=== PATIENT | female | born 1955 | race Caucasian/White ===

== ENCOUNTER 2018-09-08 09:49 | Outpatient (RCR) | payer OTHER, SELFPAY ==
[2018-09-08 10:37] VITALS: BP 139/97; PULSE 69; RESP 18; TEMP 36.4; BMI 41.8
--- NOTE | 2018-09-08 13:01 | PCM.WC.HP ---
(1) Ulcer of right lower extremity with fat layer exposed Status: Chronic Current Visit: Yes Code(s): L97.912 - Non-pressure chronic ulcer of unspecified part of right lower leg with fat layer exposed (2) Edema of both lower extremities Status: Chronic Current Visit: Yes Code(s): R60.0 - Localized edema (3) Venous insufficiency Status: Chronic Current Visit: Yes Code(s): I87.2 - Venous insufficiency (chronic) (peripheral) (4) Delayed wound healing Status: Chronic Current Visit: Yes Code(s): T14.8XXD - Other injury of unspecified body region, subsequent encounter (5) Malnutrition Status: Chronic Current Visit: Yes Code(s): E46 - Unspecified protein-calorie malnutrition History of Present Illness Date of Service: 09/08/18 Chief Complaint: Right leg ulcer History of Wound: This 63-year-old pleasant female presents to the wound healing center for chronic right leg ulcer. The onset was 6 months ago she has had delayed healing. Her pain is rated as mild to moderate and is aggravated with direct touch and swelling. She relates she does get allergic to various fabrics including compression stockings and has been unable to wear these. She usually applies a dry Band-Aid or gauze. She also sometimes leave this open to air at night. She is try to keep pressure off that by not laying on the side. She denies redness odor streaking. She denies initial trauma. She denies history of previous ulcer, claudication, or rest paresthesias. 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 Past Medical History Past Medical History: Chronic Problems Ulcer of right lower extremity with fat layer exposed (Chronic) Edema of both lower extremities (Chronic) Venous insufficiency (Chronic) Delayed wound healing (Chronic) Malnutrition (Chronic) Past Medical History: Hypertension, depression, this metabolic syndrome X, history of malignant neoplasm of GI tract, osteoarthritis, hydronephrosis, history of kidney stones, hyperlipidemia, morbid obesity, history of pulmonary embolism in 2002, hypercholesteremia, recurrent cystitis, urinary incontinence, and urinary urgency, egg allergy noted in medical review Surgical History: - - right ankle ORIF Allergies/Adverse Reactions: Allergies atorvastatin [From Lipitor] Adverse Reaction (Verified 09/08/18 11:03) Unknown Home Medications: Ambulatory Orders Medication Instructions Recorded Apixaban [Eliquis] 5 mg PO BID 09/08/18 Fenofibrate,Micronized 54 mg PO 09/08/18 [Fenofibrate] Loratadine [Claritin] 5 mg PO 09/08/18 Metoprolol Succinate 25 mg PO 09/08/18 Rosuvastatin Calcium 10 mg PO 09/08/18 Smoking Status: Never smoker Tobacco Use: Non-smoker Alcohol: None Review of Systems Constitutional: Denies: Chills, Fever, Fatigue HEENT: Denies: Sinus Drainage, Sore Throat Cardiovascular: Reports: Edema. Denies: Chest Pain, Claudication, Orthopnea Respiratory: Denies: Cough, Shortness of Breath Gastrointestinal: Denies: Diarrhea, Vomiting Musculoskeletal: Reports: Foot Pain, Joint Tenderness - Hands and feet and right shoulder. Denies: Leg Pain Skin: Reports: Skin Changes, Wounds Neurological: Denies: Incoordination, Numbness, Tingling Hematologic/ Lymphatic: Reports: Easy Bruising, Easy Bleeding, Hx of blood clot - Physical Exam Vital Signs Temp Pulse Resp BP 97.5 F L 69 18 139/97 H 09/08/18 10:37 09/08/18 10:37 09/08/18 10:37 09/08/18 10:37 General: Alert, Oriented x3, Cooperative, No apparent distress HEENT: Atraumatic Extremities: No cyanosis, Capillary Refill Less than 3 Seconds, No Calf Tenderness - Negative Zhou and Avilez sign bilateral. Compartments are soft to palpate bilateral lower extremities, Edema - Moderate bilateral lower extremities with hyperpigmentation, Peripheral Pulses Normal - Palpable PT and DP pulses bilateral Skin: Ulcer/ Wound - No purulence, erythema, streaking, odor, or infection. The ulcer bed is granular fibrous. The peripheral skin is hairless and atrophic. There is hyperpigmentation noted to bilateral lower extremities Wound Measurements and Assessment WC - Nurse 1 - General Ulcer Measurement Start: 09/08/18 10:36 Freq: Status: Active Protocol: Activity Type Activity Date Activity User E-Sign Co-Sign Detail Recorded Client Recorded Date Recorded By Document 09/08/18 10:37 DL [id number] 09/08/18 10:58 DL 09/08/18 10:37 Wound Center Nurse 1 [Ulcer Assessment] #1 Lat LE -Current Size (cm) - Length 0.7 -Current Size (cm) - Width 0.7 -Current Size (cm) - Depth 0.1 -Total Square Cm 0.49 -Photo Taken Yes -Classification - Thickness Unclassifiable (Eschar Covered ) -Exudate Amt None Present -Wound Margin Thickened -Granulation Amt None Present (0 %) -Necrosis Amt Large (67-100%) -Necrotic Tissue Type Eschar -Structure Exposed N/A -Texture (Saniya-wound Skin Appearance) Localized Edema -Moisture (Saniya-wound Skin Appearance No Abnormality ) -Color (Saniya-wound Skin Appearance) Erythema,Rubor -Temperature (Saniya-wound Skin No Abnormality Appearance) (Pt Warm) -Tenderness on Palpation (Saniya-wound No Skin Appearance) -Ulcer Cleansing Rinsed/ Irrigated with Saline -Foul Odor after Cleansing No -Anesthetic Used 5% Lidocaine Gel [Edema Assessment] -Right Calf (cm) 47 -Right Ankle (cm) 27.5 -Left Calf (cm) 46 -Left Ankle (cm) 25 WC - Nurse 2 - General Ulcer CM Notes Start: 09/08/18 10:36 Freq: Status: Active Protocol: Activity Type Activity Date Activity User E-Sign Co-Sign Detail Recorded Client Recorded Date Recorded By Document 09/08/18 11:25 [id number] 09/08/18 11:31 09/08/18 11:25 Wound Center Nurse 2 [Procedure/Treatment] #1 Lat LE -Time 11:25 -Correct Patient Yes -Correct Side, Site, Position Yes -Correct Procedure Yes -Procedure Performed Yes -Type of Procedure Debridement -Clinical Debridement Subcutaneous -Post Debridement Size (cm) - Length 0.7 -Post Debridement Size (cm) - Width 0.6 -Post Debridement Size (cm) - Depth 0.2 -Total Square Cm 0.42 -Wound/Ulcer Outcome Not Healed -Ulcer Cleansing Rinsed/ Irrigated with Saline -Foul Odor after Cleansing No -Bioengineered Tissue No -Bleeding Controlled with Pressure -Offloading No -Treatment Response Procedure Tolerated Well [See Physician Procedure note for Specifics] Pain Scale: 0-10 Numeric [Pain] -Is Patient Pain Free? Yes Musculoskeletal: No Tenderness to Palpation of Joints or Extremities, Muscle Wasting, - - 5 out of 5 ankle and digit muscle strength in all directions bilateral. No pain with passive manipulation of toes, feet, or ankles bilateral Neurological: Sensory exam intact to light touch and pain - Equal and symmetrical bilateral lower extremities Psych/Mental Status: Normal Affect, Appropriate Debridement Note Post-Debridement Measurements/Treatment WC - Nurse 2 - General Ulcer CM Notes Start: 09/08/18 10:36 Freq: Status: Active Protocol: Activity Type Activity Date Activity User E-Sign Co-Sign Detail Recorded Client Recorded Date Recorded By Document 09/08/18 11:25 [id number] 09/08/18 11:31 09/08/18 11:25 Wound Center Nurse 2 #1 Lat LE -Time 11:25 -Correct Patient Yes -Correct Side, Site, Position Yes -Correct Procedure Yes -Procedure Performed Yes -Type of Procedure Debridement -Clinical Debridement Subcutaneous -Post Debridement Size (cm) - Length 0.7 -Post Debridement Size (cm) - Width 0.6 -Post Debridement Size (cm) - Depth 0.2 -Total Square Cm 0.42 -Wound/Ulcer Outcome Not Healed -Ulcer Cleansing Rinsed/ Irrigated with Saline -Foul Odor after Cleansing No -Bioengineered Tissue No -Bleeding Controlled with Pressure -Offloading No -Treatment Response Procedure Tolerated Well Pain Scale: 0-10 Numeric Is Patient Pain Free? Yes Wound debrided: lateral leg Laterality: Right Type of Debridement: Excisional debridement Anesthesia Used: 5% Lidocaine Gel Depth: in the subcutaneous layer Percentage of wound debrided: 100 Instrument Used: #15 blade Tissue Removed: fibrous, devitalized subcutaneous, biofilm, slough Severity: Fat Layer Exposed Amount of bleeding with debridement: Mild Bleeding Controlled with: Pressure Patient tolerated procedure well Assessment/Plan Active Problems Ulcer of right lower extremity with fat layer exposed (Chronic) Edema of both lower extremities (Chronic) Venous insufficiency (Chronic) Delayed wound healing (Chronic) Malnutrition (Chronic) Assessment: Right leg ulcer. Chronic swelling possibly secondary to venous insufficiency. Delayed healing. Malnutrition suspected Plan: I reviewed and discussed her case today. Her ulcer site was debrided with a 15 blade scalpel and this was tolerated well as noted in the clinical panel. Pressure was applied to maintain hemostasis. Change dressing daily with hydrogel. To avoid leaving open to air at night. I do recommend improved edema control to reduce pressure on the site. She is also advised to avoid laying on the ulcer side. Tubigrip's were fitted and dispensed today. I also referred her for a venous Doppler with reflux to evaluate for venous insufficiency. She will return to clinic afterward for evaluation to see if any intervention is available. To avoid idle standing or sitting. To elevate limbs at rest to help with edema reduction. She was advised to take nutritional supplementation to optimize healing; a prescription for Trevor was provided. Labs for CBC, CMP, and prealbumin were also ordered to assess general health status. The comprehensive wound healing plan was discussed including her home management. To return to the wound healing center in 1 week or call sooner if she has any questions or concerns. I answer all her questions.
[2018-09-08 15:12] LABS: Absolute Lymphocyte Count 1.17 X10^3/ul (0.83-4.51); Absolute Neutrophil Count 2.9 X10^3/uL (2.0-7.7); Basophil# 0.01 X10^3/uL; Basophil% 0.2 % (0-1); Eosinophil# 0.21 X10^3/uL; Eosinophils% 4.5 % (0-5); Hematocrit 44.9 % (37-47); Lymphocyte # 1.17 X10^3/ul (4.0); Lymphocyte % 25.2 % (19-41); Mean Corp Hgb Conc 33.4 g/gl (32-36); Mean Corpuscular Hgb 29.2 pg (27.0-32.0); Mean Corpuscular Volume 87.4 fL (81-99); Monocyte# 0.38 X10^3/uL; Monocyte% 8.2 % (0-10); Neutrophil # 2.86 X10^3/uL (2.7-7.7); Neutrophil % 61.7 % (47-70); Platelet Count 268 K/mm3 (150-450); RBC Distribution Width CV 12.8 % (11.6-14.6); RBC Distribution Width SD 39.9 fl (35.1-43.9); Red Blood Count 5.14 M/mm3 (4.2-5.4); White Blood Count 4.6 K/mm3 (4.4-11.0)
[2018-09-08 15:17] LABS: POSITIVE COUNT NO; POSITIVE DIFFERENTIAL NO; POSITIVE MORPHOLOGY NO
[2018-09-08 15:39] LABS: AST(SGOT) 26 U/L (15-37); Alanine Aminotransfer ALT/SGPT 22 U/L (13-56); Albumin, Serum 3.9 g/dL (3.2-5.0); Alkaline Phosphatase 109 U/L (45-117); Anion Gap 9 (5-15); BUN 15 mg/dL (7-18); BUN/Creat Ratio 17.6 RATIO (10-20); Calcium,Total 9.3 mg/dL (8.5-10.1); Chloride 106 mmol/L (98-107); Creatinine, Serum 0.85 mg/dL (0.55-1.02); EST Glomerular Filtration Rate 72 mL/min (>60); Est Glom Filt Rate - Afr Amer 87 mL/min (>60); Estimated Creatinine Clearance 62.54 ml/min; Globulin 3.9 g/dL (2.2-4.2); Glucose 79 mg/dL (74-106); Potassium 3.9 mmol/L (3.5-5.1); Prealbumin 22.3 mg/dL (20.0-40.0); Protein, Total 7.8 g/dL (6.4-8.2); Sodium Level 143 mmol/L (136-145)
== END 2018-09-12 23:59 ==
LOC: WC 09:49
PROVIDERS: Family Provider Internal Medicine; PCP Internal Medicine; Visit Provider Podiatrist
DX: I87.2 Venous insufficiency (chronic) (peripheral) (principal); R60.0 Localized edema; L97.812 Non-pressure chronic ulcer of other part of right lower leg with fat layer exposed; M79.89 Other specified soft tissue disorders; Z86.711 Personal history of pulmonary embolism; M19.90 Unspecified osteoarthritis, unspecified site; E66.01 Morbid (severe) obesity due to excess calories; I10 Essential (primary) hypertension; E78.5 Hyperlipidemia, unspecified; Z68.41 Body mass index [BMI] 40.0-44.9, adult; Z71.3 Dietary counseling and surveillance; E88.81 Metabolic syndrome and other insulin resistance; Z79.01 Long term (current) use of anticoagulants; Z79.899 Other long term (current) drug therapy
CPT/HCPCS: 11042; 80053; 84134; 85025; 99213; G0463

== ENCOUNTER 2018-10-13 08:30 | Outpatient (RCR) | payer OTHER, SELFPAY ==
[2018-09-15 10:39] VITALS: BP 143/75; PULSE 72; RESP 18; TEMP 36.9; BMI 41.8
--- NOTE | 2018-09-15 11:14 | PCM.WC.PN ---
(1) Ulcer of right lower extremity with fat layer exposed Status: Chronic Current Visit: Yes Code(s): L97.912 - Non-pressure chronic ulcer of unspecified part of right lower leg with fat layer exposed (2) Edema of both lower extremities Status: Chronic Current Visit: Yes Code(s): R60.0 - Localized edema (3) Venous insufficiency Status: Chronic Current Visit: Yes Code(s): I87.2 - Venous insufficiency (chronic) (peripheral) (4) Delayed wound healing Status: Chronic Current Visit: Yes Code(s): T14.8XXD - Other injury of unspecified body region, subsequent encounter (5) Malnutrition Status: Chronic Current Visit: Yes Code(s): E46 - Unspecified protein-calorie malnutrition Type of Wound Date of Service: 09/15/18 Chief Complaint: Right leg ulcer History of Wound: This 63-year-old pleasant female returns to the wound healing center for chronic right leg ulcer. The onset was 6 months ago she has had delayed healing. Her pain is rated as mild to moderate and is aggravated with direct touch and swelling. She admits she does accidentally lay on the site during sleeping activities. She denies fever, chill, nausea, vomiting, redness or odors. Progress of Wound: improving - Physical Exam Vital Signs Temp Pulse Resp BP 98.4 F 72 18 143/75 H 09/15/18 10:39 09/15/18 10:39 09/15/18 10:39 09/15/18 10:39 General: Alert, Oriented x3, Cooperative, No apparent distress Extremities: No cyanosis, Capillary Refill Less than 3 Seconds, No Calf Tenderness - Negative Zhou and Avilez sign, Diminished Peripheral Pulses, Edema Skin: Ulcer/ Wound - no purulence, erythema, streaking, odor, infection. Peripheral skin is hairless and atrophic. Ulcer bed is granular and improved Wound Measurements and Assessment WC - Nurse 1 - General Ulcer Measurement Start: 09/15/18 10:39 Freq: Status: Inactive Protocol: Activity Type Activity Date Activity User E-Sign Co-Sign Detail Recorded Client Recorded Date Recorded By Document 09/15/18 10:39 RB [id number] 09/15/18 10:41 RB Edit Status 09/15/18 10:50 STEPHANY DAEMON Active=>Inactive [id number] 09/15/18 10:50 STEPHANY LINDSEY 09/15/18 10:39 Wound Center Nurse 1 [Ulcer Assessment] #1 Right Lat LE -Combined with other wound No -Current Size (cm) - Length 0.7 -Current Size (cm) - Width 0.5 -Current Size (cm) - Depth 0.2 -Total Square Cm 0.35 -Tunneling No -Undermining/Tunneling No -Circular Undermining No -Exudate Amt Small -Exudate Type Serosanguineous -Wound Margin Distinct, Outline Attached -Granulation Amt Medium (34-66%) -Granulation Quality Tamora -Slough/Fibrin Yes -Necrosis Amt Medium (34-66%) -Necrotic Tissue Type Adherent Slough -Structure Exposed N/A -Texture (Saniya-wound Skin Appearance) Assessed -Moisture (Saniya-wound Skin Appearance Assessed ) -Color (Saniya-wound Skin Appearance) Hemosiderin Staining -Temperature (Saniya-wound Skin No Abnormality Appearance) (Pt Warm) -Tenderness on Palpation (Saniya-wound No Skin Appearance) -Ulcer Cleansing Wound Cleanser -Foul Odor after Cleansing No -Anesthetic Used 5% Lidocaine Gel [Edema Assessment] -Lower Limb Edema Present Yes -Right Calf (cm) 48 -Right Ankle (cm) 26.4 WC - Nurse 2 - General Ulcer CM Notes Start: 09/15/18 10:39 Freq: Status: Inactive Protocol: Activity Type Activity Date Activity User E-Sign Co-Sign Detail Recorded Client Recorded Date Recorded By Edit Status 09/15/18 10:50 STEPHANY LINDSEY Active=>Inactive [id number] 09/15/18 10:50 STEPHANY LINDSEY - Nurse 2 - General Ulcer CM Notes Start: 09/15/18 10:49 Freq: Status: Active Protocol: Activity Type Activity Date Activity User E-Sign Co-Sign Detail Recorded Client Recorded Date Recorded By Document 09/15/18 10:49 MATT [id number] 09/15/18 10:50 MATT 09/15/18 10:49 Wound Center Nurse 2 [Procedure/Treatment] #1 Right Lat LE -Time 10:49 -Correct Patient Yes -Correct Side, Site, Position Yes -Correct Procedure Yes -Procedure Performed Yes -Type of Procedure Debridement -Clinical Debridement Subcutaneous -Post Debridement Size (cm) - Length 0.7 -Post Debridement Size (cm) - Width 0.7 -Post Debridement Size (cm) - Depth 0.1 -Total Square Cm 0.49 -Wound/Ulcer Outcome Not Healed -Ulcer Cleansing Rinsed/ Irrigated with Saline -Foul Odor after Cleansing No -Bioengineered Tissue No -Bleeding Controlled with Pressure -Offloading No -Treatment Response Procedure Tolerated Well [See Physician Procedure note for Specifics] Pain Scale: 0-10 Numeric [Pain] -Is Patient Pain Free? Yes Musculoskeletal: No Tenderness to Palpation of Joints or Extremities, Muscle Wasting Neurological: Sensory exam intact to light touch and pain Psych/Mental Status: Normal Affect, Appropriate Debridement Note Post-Debridement Measurements/Treatment WC - Nurse 2 - General Ulcer CM Notes Start: 09/15/18 10:49 Freq: Status: Active Protocol: Activity Type Activity Date Activity User E-Sign Co-Sign Detail Recorded Client Recorded Date Recorded By Document 09/15/18 10:49 MATT [id number] 09/15/18 10:50 MATT 09/15/18 10:49 Wound Center Nurse 2 #1 Right Lat LE -Time 10:49 -Correct Patient Yes -Correct Side, Site, Position Yes -Correct Procedure Yes -Procedure Performed Yes -Type of Procedure Debridement -Clinical Debridement Subcutaneous -Post Debridement Size (cm) - Length 0.7 -Post Debridement Size (cm) - Width 0.7 -Post Debridement Size (cm) - Depth 0.1 -Total Square Cm 0.49 -Wound/Ulcer Outcome Not Healed -Ulcer Cleansing Rinsed/ Irrigated with Saline -Foul Odor after Cleansing No -Bioengineered Tissue No -Bleeding Controlled with Pressure -Offloading No -Treatment Response Procedure Tolerated Well Pain Scale: 0-10 Numeric Is Patient Pain Free? Yes Wound debrided: lateral leg Laterality: Right Type of Debridement: Excisional debridement Anesthesia Used: 5% Lidocaine Gel Depth: in the subcutaneous layer Percentage of wound debrided: 100 Instrument Used: #15 blade Tissue Removed: fibrous, devitalized subcutaneous, biofilm, slough Severity: Fat Layer Exposed Amount of bleeding with debridement: Mild Bleeding Controlled with: Pressure Patient tolerated procedure well Assessment/Plan Active Problems Ulcer of right lower extremity with fat layer exposed (Chronic) Edema of both lower extremities (Chronic) Venous insufficiency (Chronic) Delayed wound healing (Chronic) Malnutrition (Chronic) Assessment: Right leg ulcer with fat layer exposed. Chronic swelling possibly secondary to venous insufficiency. Delayed healing. Malnutrition suspected Plan: I reviewed and discussed her case today. Her ulcer site was debrided with a 15 blade scalpel and this was tolerated well as noted in the clinical panel. Pressure was applied to maintain hemostasis. Change dressing daily with hydrogel. I do recommend improved edema control to reduce pressure on the site. She is also advised to avoid laying on the ulcer side. A prescription for offloading donut pillow was provided and she is advised on proper use. Tubigrip's were fitted and dispensed today. I also referred her for a venous Doppler with reflux to evaluate for venous insufficiency. She will return to clinic afterward for evaluation to see if any intervention is available. This is scheduled for next week. To avoid idle standing or sitting. To elevate limbs at rest to help with edema reduction. She was advised to take nutritional supplementation to optimize healing; a prescription for Trevor was provided. Labs for CBC, CMP, and prealbumin were also ordered to assess general health status. These were reviewed with no gross abnormalities. It is noted her prealbumin level was 22 which is on the low end of the normal range. The comprehensive wound healing plan was discussed including her home management. To return to the wound healing center in 1 week or call sooner if she has any questions or concerns. I answer all her questions.
--- NOTE | 2018-09-22 13:16 | VDLE_ITS ---
Reason For Study: Leg edema RIGHT LEFT CFV is compressible, spontaneous, phasic, CFV is compressible, spontaneous, phasic, competent and demonstrates normal competent, and demonstrates normal augmentation. augmentation. FV is compressible, spontaneous, phasic, FV is compressible, spontaneous, phasic, competent and demonstrates normal competent and demonstrates normal augmentation. augmentation. POP V is compressible, spontaneous, phasic, POP V is compressible, spontaneous, phasic, competent and demonstrates normal competent and demonstrates normal augmentation. augmentation. T/P Trunk is compressible. T/P Trunk is compressible. PTV is compressible. PTV is compressible. RT PerV is compressible. LT PerV is compressible. SFJ is competent. SFJ is competent. GSV above knee is competent. GSV above knee is competent. GSV below knee is INCOMPETENT for greater GSV ebelow knee is INCOMPETENT for greater than 0.5 sec and measures 0.38 x 0.38 cm. than 0.5 seconds and measures 0.27 x 0.25 cm. SSV is competent. SSV is competent. Procedure Exam performed in department. A preliminary report was called and/or faxed to . Interpretation Summary Deep veins of the lower extremities are bilaterally patent and compressible segmentally. There is no evidence of deep vein thrombosis on either side. Valvular competence appears intact within the proximal deep venous systems bilaterally. The greater saphenous veins appear bilaterally patent and compressible segmentally. Sapheno-femoral junctions are bilaterally competent . The right greater saphenous vein appears competent above the knee. The right greater saphenous vein appears incompetent below the knee. The left greater saphenous vein appears competent above the knee. The left greater saphenous vein appears incompetent below the knee. Small saphenous veins are patent and competent bilaterally. Ordering Physician: Elyssa Queen Referring Physician: Bharati Billings Performed By: Willinger, Flower, RVT
[2018-09-22 14:09] VITALS: BP 121/79; PULSE 92; RESP 18; TEMP 36.9; BMI 41.8
--- NOTE | 2018-09-22 15:20 | PN.PCM_ITS ---
(1) Ulcer of right lower extremity with fat layer exposed Status: Chronic Current Visit: Yes Code(s): L97.912 - Non-pressure chronic ulcer of unspecified part of right lower leg with fat layer exposed (2) Edema of both lower extremities Status: Chronic Current Visit: Yes Code(s): R60.0 - Localized edema (3) Venous insufficiency Status: Chronic Current Visit: Yes Code(s): I87.2 - Venous insufficiency (chronic) (peripheral) (4) Delayed wound healing Status: Chronic Current Visit: Yes Code(s): T14.8XXD - Other injury of unspecified body region, subsequent encounter (5) Malnutrition Status: Chronic Current Visit: Yes Code(s): E46 - Unspecified protein- calorie malnutrition Type of Wound Date of Service: 09/22/18 Chief Complaint: Right leg ulcer History of Wound: This 63-year-old pleasant female returns to the wound healing center for chronic right leg ulcer. The onset was 6 months ago she has had delayed healing. Her pain is rated as mild to moderate and is aggravated with direct touch and swelling. She reports the ulcer is getting smaller and draining less. She denies fever, chill, nausea, vomiting, redness or odors. Progress of Wound: improving - Physical Exam Vital Signs Temp Pulse Resp BP 98.4 F 92 18 121/79 H 09/22/18 14:09 09/22/18 14:09 09/22/18 14:09 09/22/18 14:09 General: Alert, Oriented x3, Cooperative, No apparent distress Extremities: No cyanosis, Capillary Refill Less than 3 Seconds, No Calf Tenderness - Negative Zhou and Avilez sign right, Diminished Peripheral Pulses, Edema Skin: Ulcer/ Wound - No purulence, erythema, streaking, odor, infection. Peripheral skin is hairless and atrophic. Wound Measurements and Assessment WC - Nurse 1 - General Ulcer Measurement Start: 09/15/18 10:49 Freq: Status: Active Protocol: Activity Type Activity Date Activity User E-Sign Co-Sign Detail Recorded Client Recorded Date Recorded By Document 09/22/18 14:09 DL [id number] 09/22/18 14:16 DL 09/22/18 14:09 Wound Center Nurse 1 [Ulcer Assessment] #1 Right Lat LE -Current Size (cm) - Length 0.7 -Current Size (cm) - Width 0.7 -Current Size (cm) - Depth 0.2 -Total Square Cm 0.49 -Photo Taken No -Exudate Amt Small -Exudate Type Serosanguineous -Wound Margin Distinct, Outline Attached -Granulation Amt Large (67-100%) -Granulation Quality Red -Necrosis Amt Small (1-33%) -Necrotic Tissue Type Adherent Slough -Structure Exposed N/A -Texture (Saniya-wound Skin Appearance) Scarring -Moisture (Saniya-wound Skin Appearance No Abnormality ) -Color (Saniya-wound Skin Appearance) Erythema -Temperature (Saniya-wound Skin No Abnormality Appearance) (Pt Warm) -Tenderness on Palpation (Saniya-wound No Skin Appearance) -Ulcer Cleansing Rinsed/ Irrigated with Saline -Foul Odor after Cleansing No -Anesthetic Used 5% Lidocaine Gel [Edema Assessment] -Right Calf (cm) 46.5 -Right Ankle (cm) 25.3 WC - Nurse 2 - General Ulcer CM Notes Start: 09/15/18 10:49 Freq: Status: Active Protocol: Activity Type Activity Date Activity User E-Sign Co-Sign Detail Recorded Client Recorded Date Recorded By Document 09/22/18 14:36 [id number] 09/22/18 14:39 09/22/18 14:36 Wound Center Nurse 2 [Procedure/Treatment] #1 Right Lat LE -Time 14:38 -Correct Patient Yes -Correct Side, Site, Position Yes -Correct Procedure Yes -Procedure Performed Yes -Type of Procedure Debridement -Clinical Debridement Subcutaneous -Post Debridement Size (cm) - Length 0.8 -Post Debridement Size (cm) - Width 0.7 -Post Debridement Size (cm) - Depth 0.2 -Total Square Cm 0.56 -Wound/Ulcer Outcome Not Healed -Ulcer Cleansing Rinsed/ Irrigated with Saline -Foul Odor after Cleansing No -Bioengineered Tissue No -Bleeding Controlled with Pressure -Offloading No -Treatment Response Procedure Tolerated Well [See Physician Procedure note for Specifics] Pain Scale: 0-10 Numeric [Pain] -Is Patient Pain Free? Yes Musculoskeletal: No Tenderness to Palpation of Joints or Extremities, Muscle Wasting, - - Compartment soft to palpate right Neurological: Sensory exam intact to light touch and pain Psych/Mental Status: Normal Affect, Appropriate Debridement Note Post-Debridement Measurements/Treatment WC - Nurse 2 - General Ulcer CM Notes Start: 09/15/18 10:49 Freq: Status: Active Protocol: Activity Type Activity Date Activity User E-Sign Co-Sign Detail Recorded Client Recorded Date Recorded By Document 09/15/18 10:49 [id number] 09/15/18 10:50 Document 09/22/18 14:36 [id number] 09/22/18 14:39 09/15/18 09/22/18 10:49 14:36 Wound Center Nurse 2 #1 Right Lat LE -Time 10:49 14:38 -Correct Patient Yes Yes -Correct Side, Site, Position Yes Yes -Correct Procedure Yes Yes -Procedure Performed Yes Yes -Type of Procedure Debridement Debridement -Clinical Debridement Subcutaneous Subcutaneous -Post Debridement Size (cm) - Length 0.7 0.8 -Post Debridement Size (cm) - Width 0.7 0.7 -Post Debridement Size (cm) - Depth 0.1 0.2 -Total Square Cm 0.49 0.56 -Wound/Ulcer Outcome Not Healed Not Healed -Ulcer Cleansing Rinsed/ Rinsed/ Irrigated with Irrigated with Saline Saline -Foul Odor after Cleansing No No -Bioengineered Tissue No No -Bleeding Controlled with Pressure Pressure -Offloading No No -Treatment Response Procedure Procedure Tolerated Well Tolerated Well Pain Scale: 0-10 Numeric Is Patient Pain Free? Yes Yes Wound debrided: leg lateral Laterality: Right Type of Debridement: Excisional debridement Anesthesia Used: 5% Lidocaine Gel Depth: in the subcutaneous layer Percentage of wound debrided: 100 Instrument Used: #15 blade Tissue Removed: fibrous, devitalized subcutaneous, biofilm, slough Severity: Fat Layer Exposed Amount of bleeding with debridement: Mild Bleeding Controlled with: Pressure Patient tolerated procedure well Assessment/Plan Active Problems Ulcer of right lower extremity with fat layer exposed (Chronic) Edema of both lower extremities (Chronic) Venous insufficiency (Chronic) Delayed wound healing (Chronic) Malnutrition (Chronic) Assessment: Right leg ulcer with fat layer exposed. Chronic swelling possibly secondary to venous insufficiency. Delayed healing. Malnutrition suspected Plan: I reviewed and discussed her case today. Her ulcer site was debrided with a 15 blade scalpel and this was tolerated well as noted in the clinical panel. Pressure was applied to maintain hemostasis. Change dressing daily with hydrogel. I do recommend improved edema control to reduce pressure on the site. She is also advised to avoid laying on the ulcer side. A prescription for offloading donut pillow was provided and she is advised on proper use. To continue Tubigrip's. I also referred her for a venous Doppler with reflux to evaluate for venous insufficiency. Incompetency was noted and I recommended a vascular surgery referral with Dr. Yung to see if any additional intervention exists. She will return to clinic afterward for evaluation to see if any intervention is available. This is scheduled for next week. To avoid idle standing or sitting. To elevate limbs at rest to help with edema reduction. She was advised to take nutritional supplementation to optimize healing; a prescription for Trevor was provided. She obtained this and she was advised to continue. Labs for CBC, CMP, and prealbumin were also ordered to assess general health status. No gross abnormalities were noted. Her white blood cell count was 4.6. Her prealbumin level was 22.3. These other labs were reviewed with no gross abnormalities. The comprehensive wound healing plan was discussed including her home management. To return to the wound healing center in 1 week or call sooner if she has any questions or concerns. I answer all her questions.
[2018-09-29 14:44] VITALS: BP 120/72; PULSE 71; RESP 18; TEMP 36.9; BMI 41.8
--- NOTE | 2018-09-29 15:29 | PN.PCM_ITS ---
(1) Ulcer of right lower extremity with fat layer exposed Status: Chronic Current Visit: Yes Code(s): L97.912 - Non-pressure chronic ulcer of unspecified part of right lower leg with fat layer exposed (2) Edema of both lower extremities Status: Chronic Current Visit: Yes Code(s): R60.0 - Localized edema (3) Venous insufficiency Status: Chronic Current Visit: Yes Code(s): I87.2 - Venous insufficiency (chronic) (peripheral) (4) Delayed wound healing Status: Chronic Current Visit: Yes Code(s): T14.8XXD - Other injury of unspecified body region, subsequent encounter (5) Malnutrition Status: Chronic Current Visit: Yes Code(s): E46 - Unspecified protein- calorie malnutrition Type of Wound Date of Service: 09/30/18 Chief Complaint: Right leg ulcer History of Wound: This 63-year-old pleasant female returns to the wound healing center for chronic right leg ulcer. The onset was over 6 months ago she has had delayed healing. Her pain is rated as mild to moderate and is aggravated with direct touch and swelling. She denies fever, chill, nausea, vomiting, redness or odors. She has a follow-up with Dr. Yung on October 12. She brought her Farrow wraps today and asked for help with the application process. Progress of Wound: Stable - Physical Exam Vital Signs Temp Pulse Resp BP 98.4 F 71 18 120/72 09/29/18 14:44 09/29/18 14:44 09/29/18 14:44 09/29/18 14:44 General: Alert, Oriented x3, Cooperative, No apparent distress Extremities: No cyanosis, Capillary Refill Less than 3 Seconds, No Calf Tenderness - Negative Zhou and Avilez sign bilateral. Compartments are soft to palpate bilateral lower extremities., Diminished Peripheral Pulses, Edema - Bilateral lower extremity consistent with venous insufficiency and lymphedema Skin: Ulcer/ Wound - No purulence, erythema, streaking, odor, infection. The peripheral skin is hairless and atrophic. There is no deep tissue noted or necrosis. Wound Measurements and Assessment WC - Nurse 1 - General Ulcer Measurement Start: 09/15/18 10:49 Freq: Status: Active Protocol: Activity Type Activity Date Activity User E-Sign Co-Sign Detail Recorded Client Recorded Date Recorded By Document 09/29/18 14:44 [id number] 09/29/18 14:53 09/29/18 14:44 Wound Center Nurse 1 [Ulcer Assessment] #1 Right Lat LE -Combined with other wound No -Current Size (cm) - Length 0.7 -Current Size (cm) - Width 0.6 -Current Size (cm) - Depth 0.2 -Total Square Cm 0.42 -Tunneling No -Undermining/Tunneling No -Circular Undermining No -Exudate Amt Small -Exudate Type Serosanguineous -Wound Margin Distinct, Outline Attached -Granulation Amt Medium (34-66%) -Granulation Quality [place] -Slough/Fibrin Yes -Necrosis Amt Small (1-33%) -Necrotic Tissue Type Adherent Slough -Structure Exposed N/A -Texture (Saniya-wound Skin Appearance) Assessed -Moisture (Saniya-wound Skin Appearance Assessed ) -Color (Saniya-wound Skin Appearance) Assessed, Erythema -Temperature (Saniya-wound Skin No Abnormality Appearance) (Pt Warm) -Tenderness on Palpation (Saniya-wound No Skin Appearance) -Ulcer Cleansing Wound Cleanser -Foul Odor after Cleansing No -Anesthetic Used 5% Lidocaine Gel [Edema Assessment] -Lower Limb Edema Present Yes -Right Calf (cm) 48 -Right Ankle (cm) 26.4 WC - Nurse 2 - General Ulcer CM Notes Start: 09/15/18 10:49 Freq: Status: Active Protocol: Activity Type Activity Date Activity User E-Sign Co-Sign Detail Recorded Client Recorded Date Recorded By Document 09/29/18 15:24 [id number] 09/29/18 15:29 AN 09/29/18 15:24 Wound Center Nurse 2 [Procedure/Treatment] #1 Right Lat LE -Time 15:28 -Correct Patient Yes -Correct Side, Site, Position Yes -Correct Procedure Yes -Procedure Performed Yes -Type of Procedure Debridement -Clinical Debridement Subcutaneous -Post Debridement Size (cm) - Length 0.8 -Post Debridement Size (cm) - Width 0.7 -Post Debridement Size (cm) - Depth 0.2 -Total Square Cm 0.56 -Wound/Ulcer Outcome Not Healed -Ulcer Cleansing Rinsed/ Irrigated with Saline -Bleeding Controlled with Pressure -Treatment Response Procedure Tolerated Well [See Physician Procedure note for Specifics] Pain Scale: 0-10 Numeric [Pain] -Is Patient Pain Free? Yes Musculoskeletal: No Tenderness to Palpation of Joints or Extremities, Muscle Wasting Neurological: Sensory exam intact to light touch and pain Psych/Mental Status: Normal Affect, Appropriate Debridement Note Post-Debridement Measurements/Treatment WC - Nurse 2 - General Ulcer CM Notes Start: 09/15/18 10:49 Freq: Status: Active Protocol: Activity Type Activity Date Activity User E-Sign Co-Sign Detail Recorded Client Recorded Date Recorded By Document 09/15/18 10:49 [id number] 09/15/18 10:50 Document 09/22/18 14:36 [id number] 09/22/18 14:39 Document 09/29/18 15:24 AN [id number] 09/29/18 15:29 AN 09/15/18 09/22/18 09/29/18 10:49 14:36 15:24 Wound Center Nurse 2 #1 Right Lat LE -Time 10:49 14:38 15:28 -Correct Patient Yes Yes Yes -Correct Side, Site, Position Yes Yes Yes -Correct Procedure Yes Yes Yes -Procedure Performed Yes Yes Yes -Type of Procedure Debridement Debridement Debridement -Clinical Debridement Subcutaneous Subcutaneous Subcutaneous -Post Debridement Size (cm) - Length 0.7 0.8 0.8 -Post Debridement Size (cm) - Width 0.7 0.7 0.7 -Post Debridement Size (cm) - Depth 0.1 0.2 0.2 -Total Square Cm 0.49 0.56 0.56 -Wound/Ulcer Outcome Not Healed Not Healed Not Healed -Ulcer Cleansing Rinsed/ Rinsed/ Rinsed/ Irrigated with Irrigated with Irrigated with Saline Saline Saline -Foul Odor after Cleansing No No -Bioengineered Tissue No No -Bleeding Controlled with Pressure Pressure Pressure -Offloading No No -Treatment Response Procedure Procedure Procedure Tolerated Well Tolerated Well Tolerated Well Pain Scale: 0-10 Numeric Is Patient Pain Free? Yes Yes Yes Wound debrided: lateral leg Laterality: Right Type of Debridement: Excisional debridement Anesthesia Used: 5% Lidocaine Gel Depth: in the subcutaneous layer Percentage of wound debrided: 100 Instrument Used: #15 blade Tissue Removed: fibrous, devitalized subcutaneous, biofilm, slough Severity: Fat Layer Exposed Amount of bleeding with debridement: Mild Bleeding Controlled with: Pressure Patient tolerated procedure well Assessment/Plan Active Problems Ulcer of right lower extremity with fat layer exposed (Chronic) Edema of both lower extremities (Chronic) Venous insufficiency (Chronic) Delayed wound healing (Chronic) Malnutrition (Chronic) Assessment: Right leg ulcer with fat layer exposed. Chronic swelling possibly secondary to venous insufficiency. Delayed healing. Malnutrition suspected Plan: Thank youI reviewed and discussed her case today. Her ulcer site was debrided with a 15 blade scalpel and this was tolerated well as noted in the clinical panel. Pressure was applied to maintain hemostasis. Change dressing da grace with hydrogel. I do recommend improved edema control to reduce pressure on the site. She is also advised to avoid laying on the ulcer side. A prescription for offloading donut pillow was provided and she is advised on proper use. To continue Tubigrip's. I also referred her for a venous Doppler with reflux to evaluate for venous insufficiency. Incompetency was noted and I recommended a vascular surgery referral with Dr. Yung to see if any additional intervention exists. She will return to clinic afterward for evaluation to see if any intervention is available. She is scheduled for October 12. She brought her Farrow wraps today and education on proper application was reviewed. To avoid idle standing or sitting. To elevate limbs at rest to help with edema reduction. She was advised to take nutritional supplementation to optimize healing; a prescription for Trevor was provided. She obtained this and she was advised to continue. Labs for CBC, CMP, and prealbumin were also ordered to assess general health status. No gross abnormalities were noted. Her white blood cell count was 4.6. Her prealbumin level was 22.3. These other labs were reviewed with no gross abnormalities. The comprehensive wound healing plan was discussed including her home management. I recommend application of advanced wound healing product, epi-fix. Prior authorization will be initiated. The purpose, indication, anticipated healing time management were discussed in detail. It is noted she has had this ulcer for over 6 months and has failed standard comprehensive wound healing plan so far. This is medically necessary for limb salvage. To return to the wound healing center in 1 week or call sooner if she has any questions or concerns. I answer all her questions.
[2018-10-06 13:38] VITALS: BP 116/79; PULSE 95; RESP 18; TEMP 37; BMI 41.8
--- NOTE | 2018-10-06 14:16 | PCM.WC.PN ---
(1) Ulcer of right lower extremity with fat layer exposed Status: Chronic Current Visit: Yes Code(s): L97.912 - Non-pressure chronic ulcer of unspecified part of right lower leg with fat layer exposed (2) Edema of both lower extremities Status: Chronic Current Visit: Yes Code(s): R60.0 - Localized edema (3) Venous insufficiency Status: Chronic Current Visit: Yes Code(s): I87.2 - Venous insufficiency (chronic) (peripheral) (4) Delayed wound healing Status: Chronic Current Visit: Yes Code(s): T14.8XXD - Other injury of unspecified body region, subsequent encounter (5) Malnutrition Status: Chronic Current Visit: Yes Code(s): E46 - Unspecified protein-calorie malnutrition Type of Wound Date of Service: 10/08/18 Chief Complaint: Right leg ulcer History of Wound: This 63-year-old pleasant female returns to the wound healing center for chronic right leg ulcer. The onset was over 6 months ago she has had delayed healing. Her pain is rated as mild to moderate and is aggravated with direct touch and swelling. She denies fever, chill, nausea, vomiting, redness or odors. She has a follow-up with Dr. Yung on October 12. Progress of Wound: imProving - Physical Exam Vital Signs Temp Pulse Resp BP 98.6 F 95 18 116/79 10/06/18 13:38 10/06/18 13:38 10/06/18 13:38 10/06/18 13:38 General: Alert, Oriented x3, Cooperative, No apparent distress Extremities: No cyanosis, Capillary Refill Less than 3 Seconds, No Calf Tenderness - Negative Zhou and Avilez signs present. Legs appear consistent with lymphedema appearance, Edema, Peripheral Pulses Normal Skin: Ulcer/ Wound - No purulence, erythema, string, odor, infection. Peripheral skin is hyperpigmented and atrophic Wound Measurements and Assessment WC - Nurse 1 - General Ulcer Measurement Start: 09/15/18 10:49 Freq: Status: Active Protocol: Activity Type Activity Date Activity User E-Sign Co-Sign Detail Recorded Client Recorded Date Recorded By Document 10/06/18 13:38 RB [id number] 10/06/18 13:40 RB 10/06/18 13:38 Wound Center Nurse 1 [Ulcer Assessment] #1 Right Lat LE -Combined with other wound No -Current Size (cm) - Length 0.9 -Current Size (cm) - Width 0.9 -Current Size (cm) - Depth 0.2 -Total Square Cm 0.81 -Photo Taken No -Tunneling No -Undermining/Tunneling No -Circular Undermining No -Exudate Amt Small -Exudate Type Serosanguineous -Wound Margin Flat & Intact -Granulation Amt Medium (34-66%) -Granulation Quality [place] -Slough/Fibrin Yes -Necrosis Amt Medium (34-66%) -Necrotic Tissue Type Adherent Slough -Structure Exposed N/A -Texture (Saniya-wound Skin Appearance) Assessed, Excoriation -Moisture (Saniya-wound Skin Appearance Assessed,Dry/ ) Scaly -Color (Saniya-wound Skin Appearance) Assessed -Temperature (Saniya-wound Skin No Abnormality Appearance) (Pt Warm) -Tenderness on Palpation (Saniya-wound No Skin Appearance) -Ulcer Cleansing Wound Cleanser -Foul Odor after Cleansing No -Anesthetic Used 5% Lidocaine Gel [Edema Assessment] -Lower Limb Edema Present Yes -Right Calf (cm) 48.5 -Right Ankle (cm) 27 WC - Nurse 2 - General Ulcer CM Notes Start: 09/15/18 10:49 Freq: Status: Active Protocol: Activity Type Activity Date Activity User E-Sign Co-Sign Detail Recorded Client Recorded Date Recorded By Document 10/06/18 14:02 AN [id number] 10/06/18 14:11 AN 10/06/18 14:02 Wound Center Nurse 2 [Procedure/Treatment] #1 Right Lat LE -Time 14:09 -Correct Patient Yes -Correct Side, Site, Position Yes -Correct Procedure Yes -Procedure Performed Yes -Type of Procedure Debridement -Clinical Debridement Subcutaneous -Post Debridement Size (cm) - Length 1.0 -Post Debridement Size (cm) - Width 1.0 -Post Debridement Size (cm) - Depth 0.2 -Total Square Cm 1.00 -Wound/Ulcer Outcome Not Healed -Ulcer Cleansing Rinsed/ Irrigated with Saline -Foul Odor after Cleansing No -Bioengineered Tissue No -Type of bioengineered Tissue EPIFIX -Bleeding Controlled with Pressure -Offloading No -Treatment Response Procedure Tolerated Well [See Physician Procedure note for Specifics] Pain Scale: 0-10 Numeric [Pain] -Is Patient Pain Free? Yes Musculoskeletal: No Tenderness to Palpation of Joints or Extremities, Muscle Wasting Neurological: Sensory exam intact to light touch and pain Psych/Mental Status: Normal Affect, Appropriate Debridement Note Post-Debridement Measurements/Treatment WC - Nurse 2 - General Ulcer CM Notes Start: 09/15/18 10:49 Freq: Status: Active Protocol: Activity Type Activity Date Activity User E-Sign Co-Sign Detail Recorded Client Recorded Date Recorded By Document 09/15/18 10:49 [id number] 09/15/18 10:50 Document 09/22/18 14:36 [id number] 09/22/18 14:39 JF Document 09/29/18 15:24 AN [id number] 09/29/18 15:29 AN Document 10/06/18 14:02 AN [id number] 10/06/18 14:11 AN 09/15/18 09/22/18 09/29/18 10:49 14:36 15:24 Wound Center Nurse 2 #1 Right Lat LE -Time 10:49 14:38 15:28 -Correct Patient Yes Yes Yes -Correct Side, Site, Position Yes Yes Yes -Correct Procedure Yes Yes Yes -Procedure Performed Yes Yes Yes -Type of Procedure Debridement Debridement Debridement -Clinical Debridement Subcutaneous Subcutaneous Subcutaneous -Post Debridement Size (cm) - Length 0.7 0.8 0.8 -Post Debridement Size (cm) - Width 0.7 0.7 0.7 -Post Debridement Size (cm) - Depth 0.1 0.2 0.2 -Total Square Cm 0.49 0.56 0.56 -Wound/Ulcer Outcome Not Healed Not Healed Not Healed -Ulcer Cleansing Rinsed/ Rinsed/ Rinsed/ Irrigated with Irrigated with Irrigated with Saline Saline Saline -Foul Odor after Cleansing No No -Bioengineered Tissue No No -Type of bioengineered Tissue -Bleeding Controlled with Pressure Pressure Pressure -Offloading No No -Treatment Response Procedure Procedure Procedure Tolerated Well Tolerated Well Tolerated Well Pain Scale: 0-10 Numeric Is Patient Pain Free? Yes Yes Yes 10/06/18 14:02 Wound Center Nurse 2 #1 Right Lat LE -Time 14:09 -Correct Patient Yes -Correct Side, Site, Position Yes -Correct Procedure Yes -Procedure Performed Yes -Type of Procedure Debridement -Clinical Debridement Subcutaneous -Post Debridement Size (cm) - Length 1.0 -Post Debridement Size (cm) - Width 1.0 -Post Debridement Size (cm) - Depth 0.2 -Total Square Cm 1.00 -Wound/Ulcer Outcome Not Healed -Ulcer Cleansing Rinsed/ Irrigated with Saline -Foul Odor after Cleansing No -Bioengineered Tissue No -Type of bioengineered Tissue EPIFIX -Bleeding Controlled with Pressure -Offloading No -Treatment Response Procedure Tolerated Well Pain Scale: 0-10 Numeric Is Patient Pain Free? Yes Wound debrided: lateral leg Laterality: Right Type of Debridement: Excisional debridement Anesthesia Used: 5% Lidocaine Gel Depth: in the subcutaneous layer Percentage of wound debrided: 100 Instrument Used: #15 blade Tissue Removed: fibrous, devitalized subcutaneous, biofilm, slough Severity: Fat Layer Exposed Amount of bleeding with debridement: Mild Bleeding Controlled with: Pressure Patient tolerated procedure well Assessment/Plan Active Problems Ulcer of right lower extremity with fat layer exposed (Chronic) Edema of both lower extremities (Chronic) Venous insufficiency (Chronic) Delayed wound healing (Chronic) Malnutrition (Chronic) Assessment: Right leg ulcer with fat layer exposed. Chronic swelling possibly secondary to venous insufficiency. Delayed healing. Malnutrition suspected Plan: I reviewed and discussed her case today. Her ulcer site was debrided with a 15 blade scalpel and this was tolerated well as noted in the clinical panel. Pressure was applied to maintain hemostasis. Recommend application of advanced wound healing product, epi-fix. The indication purpose was explained. Prior authorization was achieved. This was applied according to standard protocol and was further secured in place with a wound veil and Steri-Strips. This is medically necessary for limb salvage. She tolerated the procedure well. She was advised to keep this dressing clean, dry, and intact until follow-up visit next week. I do recommend improved edema control to reduce pressure on the site. She is also advised to avoid laying on the ulcer side. A prescription for offloading donut pillow was provided and she is advised on proper use. To continue Tubigrip's. I also referred her for a venous Doppler with reflux to evaluate for venous insufficiency. Incompetency was noted and I recommended a vascular surgery referral with Dr. Yung to see if any additional intervention exists. She will return to clinic afterward for evaluation to see if any intervention is available. She is scheduled for October 12. She brought her [place] wraps today and education on proper application was reviewed. To avoid idle standing or sitting. To elevate limbs at rest to help with edema reduction. She was advised to take nutritional supplementation to optimize healing; a prescription for Trevor was provided. She obtained this and she was advised to continue. Labs for CBC, CMP, and prealbumin were also ordered to assess general health status. No gross abnormalities were noted. Her white blood cell count was 4.6. Her prealbumin level was 22.3. These other labs were reviewed with no gross abnormalities. The comprehensive wound healing plan was discussed including her home management. . To return to the wound healing center in 1 week or call sooner if she has any questions or concerns. I answer all her questions.
[2018-10-13 08:24] VITALS: BP 147/85; PULSE 84; RESP 18; TEMP 36.6; BMI 41.8
--- NOTE | 2018-10-13 08:29 | WC ---
RLE has reddness noted . P t states reddness increased this week after first application of epifix
--- NOTE | 2018-10-13 11:12 | PN.PCM_ITS ---
(1) Allergic dermatitis Status: Acute Current Visit: Yes Code(s): L23.9 - Allergic contact derm atitis, unspecified cause (2) Ulcer of right lower extremity with fat layer exposed Status: Chronic Current Visit: Yes Code(s): L97.912 - Non-pressure chronic ulcer of unspecified part of right lower leg with fat layer exposed (3) Edema of both lower extremities Status: Chronic Current Visit: Yes Code(s): R60.0 - Localized edema (4) Venous insufficiency Status: Chronic Current Visit: Yes Code(s): I87.2 - Venous insufficiency (chronic) (peripheral) (5) Delayed wound healing Status: Chronic Current Visit: Yes Code(s): T14.8XXD - Other injury of unspecified body region, subsequent encounter (6) Malnutrition Status: Chronic Current Visit: Yes Code(s): E46 - Unspecified protein- calorie malnutrition Type of Wound Date of Service: 10/13/18 Chief Complaint: Right leg ulcer History of Wound: This 63-year-old pleasant female returns to the wound healing center for chronic right leg ulcer. The onset was over 6 months ago she has had delayed healing. Her pain is rated as mild to moderate and is aggravated with direct touch and swelling. She denies fever, chill, nausea, vomiting, redness or odors. She wore her compression garments but the sensitive to the materials. She has a new rash to the entire aspect of her lower right leg and this rash is also present on her left leg and her right arm and her back. She denies known exposure to other new materials or allergens. She denies fever, chill, nausea, vomiting. She is continued leg swelling. Progress of Wound: imProving - Physical Exam Vital Signs Temp Pulse Resp BP 97.8 F 84 18 147/85 H 10/13/18 08:24 10/13/18 08:24 10/13/18 08:24 10/13/18 08:24 General: Alert, Oriented x3, Cooperative, No apparent distress Extremities: No cyanosis, Capillary Refill Less than 3 Seconds, No Calf Tenderness - Negative Zhou and Avilez sign bilateral, Edema - +2 bilateral lower extremities, Peripheral Pulses Normal Skin: Ulcer/ Wound - Granular skin discontinuity lateral right leg without purulence, erythema, string, odor, infection. There is adjacent ulcer inflammatory changes to the skin of the entire right lower extremity with induration diffuse erythema. There is no blistering or necrosis. The same pattern appears in the right anterior leg and right arm and subjectively to her back Wound Measurements and Assessment WC - Nurse 1 - General Ulcer Measurement Start: 09/15/18 10:49 Freq: Status: Active Protocol: Activity Type Activity Date Activity User E-Sign Co-Sign Detail Recorded Client Recorded Date Recorded By Document 10/13/18 08:24 RB [id number] 10/13/18 08:30 RB 10/13/18 08:24 Wound Center Nurse 1 [Ulcer Assessment] #1 Right Lat LE -Combined with other wound No -Current Size (cm) - Length 0.9 -Current Size (cm) - Width 1 -Current Size (cm) - Depth 0.1 -Total Square Cm 0.9 -Tunneling No -Undermining/Tunneling No -Circular Undermining No -Exudate Amt Small -Exudate Type Serosanguineous -Wound Margin Flat & Intact -Granulation Amt Large (67-100%) -Granulation Quality [place] -Slough/Fibrin Yes -Necrosis Amt Small (1-33%) -Necrotic Tissue Type Adherent Slough -Structure Exposed N/A -Texture (Saniya-wound Skin Appearance) Assessed -Moisture (Saniya-wound Skin Appearance Dry/Scaly ) -Color (Saniya-wound Skin Appearance) Assessed, Erythema -Temperature (Saniya-wound Skin No Abnormality Appearance) (Pt Warm) -Tenderness on Palpation (Saniya-wound No Skin Appearance) -Ulcer Cleansing Wound Cleanser -Foul Odor after Cleansing No -Anesthetic Used 4% Lidocaine Solution [Edema Assessment] -Lower Limb Edema Present Yes -Right Calf (cm) 47.8 -Right Ankle (cm) 27 10/13/18 08:29 Wound Center by Sasha Pritchett has reddness noted . P t states reddness increased this week after first application of epifix Initialized on 10/13/18 08:29 - END OF NOTE WC - Nurse 2 - General Ulcer CM Notes Start: 09/15/18 10:49 Freq: Status: Active Protocol: Activity Type Activity Date Activity User E-Sign Co-Sign Detail Recorded Client Recorded Date Recorded By Document 10/13/18 09:03 AN [id number] 10/13/18 09:10 AN 10/13/18 09:03 Wound Center Nurse 2 [Procedure/Treatment] #1 Right Lat LE -Time 09:08 -Correct Patient Yes -Correct Side, Site, Position Yes -Correct Procedure Yes -Procedure Performed Yes -Type of Procedure Debridement -Clinical Debridement Subcutaneous -Post Debridement Size (cm) - Length 1.0 -Post Debridement Size (cm) - Width 1.1 -Post Debridement Size (cm) - Depth 0.1 -Total Square Cm 1.10 -Wound/Ulcer Outcome Not Healed -Ulcer Cleansing Rinsed/ Irrigated with Saline -Foul Odor after Cleansing No -Bioengineered Tissue Yes -Type of bioengineered Tissue EPIFIX -Bleeding Controlled with Pressure -Offloading No -Treatment Response Procedure Tolerated Well [See Physician Procedure note for Specifics] Pain Scale: 0-10 Numeric [Pain] -Is Patient Pain Free? Yes Musculoskeletal: No Tenderness to Palpation of Joints or Extremities, Muscle Wasting, - - Compartment soft bilateral lower extremities Neurological: Sensory exam intact to light touch and pain Psych/Mental Status: Normal Affect, Appropriate Debridement Note Post-Debridement Measurements/Treatment WC - Nurse 2 - General Ulcer CM Notes Start: 09/15/18 10:49 Freq: Status: Active Protocol: Activity Type Activity Date Activity User E-Sign Co-Sign Detail Recorded Client Recorded Date Recorded By Document 09/15/18 10:49 [id number] 09/15/18 10:50 Document 09/22/18 14:36 [id number] 09/22/18 14:39 Document 09/29/18 15:24 AN [id number] 09/29/18 15:29 AN Document 10/06/18 14:02 AN [id number] 10/06/18 14:11 AN Document 10/13/18 09:03 AN [id number] 10/13/18 09:10 AN 09/15/18 09/22/18 09/29/18 10:49 14:36 15:24 Wound Center Nurse 2 #1 Right Lat LE -Time 10:49 14:38 15:28 -Correct Patient Yes Yes Yes -Correct Side, Site, Position Yes Yes Yes -Correct Procedure Yes Yes Yes -Procedure Performed Yes Yes Yes -Type of Procedure Debridement Debridement Debridement -Clinical Debridement Subcutaneous Subcutaneous Subcutaneous -Post Debridement Size (cm) - Length 0.7 0.8 0.8 -Post Debridement Size (cm) - Width 0.7 0.7 0.7 -Post Debridement Size (cm) - Depth 0.1 0.2 0.2 -Total Square Cm 0.49 0.56 0.56 -Wound/Ulcer Outcome Not Healed Not Healed Not Healed -Ulcer Cleansing Rinsed/ Rinsed/ Rinsed/ Irrigated with Irrigated with Irrigated with Saline Saline Saline -Foul Odor after Cleansing No No -Bioengineered Tissue No No -Type of bioengineered Tissue -Bleeding Controlled with Pressure Pressure Pressure -Offloading No No -Treatment Response Procedure Procedure Procedure Tolerated Well Tolerated Well Tolerated Well Pain Scale: 0-10 Numeric Is Patient Pain Free? Yes Yes Yes 10/06/18 10/13/18 14:02 09:03 Wound Center Nurse 2 #1 Right Lat LE -Time 14:09 09:08 -Correct Patient Yes Yes -Correct Side, Site, Position Yes Yes -Correct Procedure Yes Yes -Procedure Performed Yes Yes -Type of Procedure Debridement Debridement -Clinical Debridement Subcutaneous Subcutaneous -Post Debridement Size (cm) - Length 1.0 1.0 -Post Debridement Size (cm) - Width 1.0 1.1 -Post Debridement Size (cm) - Depth 0.2 0.1 -Total Square Cm 1.00 1.10 -Wound/Ulcer Outcome Not Healed Not Healed -Ulcer Cleansing Rinsed/ Rinsed/ Irrigated with Irrigated with Saline Saline -Foul Odor after Cleansing No No -Bioengineered Tissue No Yes -Type of bioengineered Tissue EPIFIX EPIFIX -Bleeding Controlled with Pressure Pressure -Offloading No No -Treatment Response Procedure Procedure Tolerated Well Tolerated Well Pain Scale: 0-10 Numeric Is Patient Pain Free? Yes Yes Wound debrided: lateral leg Laterality: Right Type of Debridement: Excisional debridement Anesthesia Used: 5% Lidocaine Gel Depth: in the subcutaneous layer Percentage of wound debrided: 100 Instrument Used: #15 blade Tissue Removed: fibrous, devitalized subcutaneous, biofilm, slough Severity: Fat Layer Exposed Amount of bleeding with debridement: Mild Bleeding Controlled with: Pressure Patient tolerated procedure well Assessment/Plan Active Problems Ulcer of right lower extremity with fat layer exposed (Chronic) Edema of both lower extremities (Chronic) Venous insufficiency (Chronic) Delayed wound healing (Chronic) Malnutrition (Chronic) Allergic dermatitis (Acute) Assessment: Right leg ulcer with fat layer exposed. Chronic swelling secondary to venous insufficiency and possibly lymphedema. Delayed healing. Malnutrition suspected. Allergic dermatitis Plan: I reviewed and discussed her case today. Her ulcer site was debrided with a 15 blade scalpel and this was tolerated well as noted in the clinical panel. Pressure was applied to maintain hemostasis. Recommend application of advanced wound healing product, epi-fix. The indication purpose was explained. Prior authorization was achieved. This was applied according to standard protocol and was further secured in place with a wound veil and tape. This is medically necessary for limb salvage. She tolerated the procedure well. She was advised to keep this dressing clean, dry, and intact until follow-up visit next week. I do recommend improved edema control to reduce pressure on the site. She is also advised to avoid laying on the ulcer side. A prescription for offloading donut pillow was provided and she is advised on proper use. To continue Tubigrip's. I also referred her for a venous Doppler with reflux to evaluate for venous insufficiency. Incompetency was noted and I recommended a vascular surgery referral with Dr. Yung to see if any additional intervention exists. She will return to clinic afterward for evaluation to see if any intervention is available. She is scheduled for October 12. She brought her [place] wraps today and education on proper application was reviewed. To avoid idle standing or sitting. To elevate limbs at rest to help with edema reduction. She was advised to take nutritional supplementation to optimize healing; a prescription for Trevor was provided. She obtained this and she was advised to continue. Labs for CBC, CMP, and prealbumin were also ordered to assess general health status. No gross abnormalities were noted. Her white blood cell count was 4.6. Her prealbumin level was 22.3. These other labs were reviewed with no gross abnormalities. The comprehensive wound healing plan was discussed including her home management. A referral to dermatology was provided due to her new onset rashes affecting several areas of her body. She understands further work-up with emt or hazardous substances scientist may be warranted pending her initial dermatology work-up. She was reassured there are no infection signs. . To return to the wound healing center in 1 week or call sooner if she has any questions or concerns. I answer all her questions.
== END 2018-10-13 23:59 ==
LOC: WC 08:30
PROVIDERS: Family Provider Internal Medicine; PCP Internal Medicine; Referring Provider Podiatrist; Visit Provider Podiatrist
DX: I87.2 Venous insufficiency (chronic) (peripheral) (principal); R60.0 Localized edema; L97.812 Non-pressure chronic ulcer of other part of right lower leg with fat layer exposed; M79.89 Other specified soft tissue disorders
CPT/HCPCS: 11042; 15271; 93970; Q4186

== ENCOUNTER 2018-11-10 16:30 | Outpatient (RCR) | payer OTHER, SELFPAY ==
[2018-10-14 01:03] VITALS: BP 147/85; PULSE 84; RESP 18; TEMP 36.6
[2018-10-20 10:52] VITALS: BP 132/75; PULSE 85; RESP 18; TEMP 37.1; BMI 41.8
--- NOTE | 2018-10-20 13:11 | PCM.WC.PN ---
(1) Ulcer of right lower extremity with fat layer exposed Status: Chronic Current Visit: Yes Code(s): L97.912 - Non-pressure chronic ulcer of unspecified part of right lower leg with fat layer exposed (2) Lymphedema Status: Acute Current Visit: Yes Code(s): I89.0 - Lymphedema, not elsewhere classified (3) Edema of both lower extremities Status: Chronic Current Visit: Yes Code(s): R60.0 - Localized edema (4) Venous insufficiency Status: Chronic Current Visit: Yes Code(s): I87.2 - Venous insufficiency (chronic) (peripheral) (5) Delayed wound healing Status: Chronic Current Visit: Yes Code(s): T14.8XXD - Other injury of unspecified body region, subsequent encounter (6) Malnutrition Status: Chronic Current Visit: Yes Code(s): E46 - Unspecified protein-calorie malnutrition (7) Allergic dermatitis Status: Acute Current Visit: Yes Code(s): L23.9 - Allergic contact dermatitis, unspecified cause Type of Wound Date of Service: 10/21/18 Chief Complaint: Right leg ulcer History of Wound: This 63-year-old pleasant female returns to the wound healing center for chronic right leg ulcer. The onset was over 8 months ago she has had delayed healing. Her pain is rated as mild to moderate and is aggravated with direct touch and swelling. She denies fever, chill, nausea, vomiting, redness or odors. She wore her compression garments but the sensitive to the materials. She has a new rash to the entire aspect of her lower right leg and this rash is also present on her left leg and her right arm and her back. She was referred to dermatology last week who started her on oral prednisone. She has had reduction in skin rash inflammation not only in her leg with the rest of her body. She is also been seen by vascular surgeon for venous insufficiency and has been provided with a referral for a different compression liner reroll tender in hopes that she is not as sensitive to this material. She denies fever, chill, nausea, vomiting. Progress of Wound: Improving - Physical Exam Vital Signs Temp Pulse Resp BP 98.8 F 85 18 132/75 H 10/20/18 10:52 10/20/18 10:52 10/20/18 10:52 10/20/18 10:52 General: Alert, Oriented x3, Cooperative, No apparent distress Extremities: No cyanosis, Capillary Refill Less than 3 Seconds, No Calf Tenderness - Negative Zhou breath and bilateral, Diminished Peripheral Pulses, Edema - Bilateral lower extremity with varicosities Skin: Ulcer/ Wound - No purulence, erythema, streaking, odor, infection. There is granulation tissue in the ulcer bed. Decreased peripheral inflammation, erythema, and skin induration. No new ulcer formation is noted. Wound Measurements and Assessment WC - Nurse 1 - General Ulcer Measurement Start: 10/20/18 10:51 Freq: Status: Active Protocol: Activity Type Activity Date Activity User E-Sign Co-Sign Detail Recorded Client Recorded Date Recorded By Document 10/20/18 10:52 DL [id number] 10/20/18 10:56 DL 10/20/18 10:52 Wound Center Nurse 1 [Ulcer Assessment] #1 Right Lat LE -Current Size (cm) - Length 0.7 -Current Size (cm) - Width 0.6 -Current Size (cm) - Depth 0.2 -Total Square Cm 0.42 -Photo Taken No -Exudate Amt Small -Exudate Type Serosanguineous -Wound Margin Distinct, Outline Attached -Granulation Amt Small (1-33%) -Granulation Quality [place] -Necrosis Amt Small (1-33%) -Necrotic Tissue Type Adherent Slough -Structure Exposed N/A -Texture (Saniya-wound Skin Appearance) Excoriation, Scarring -Moisture (Saniya-wound Skin Appearance Dry/Scaly ) -Color (Saniya-wound Skin Appearance) No Abnormality -Temperature (Saniya-wound Skin No Abnormality Appearance) (Pt Warm) -Tenderness on Palpation (Saniya-wound No Skin Appearance) -Ulcer Cleansing Rinsed/ Irrigated with Saline -Foul Odor after Cleansing No -Anesthetic Used 5% Lidocaine Gel [Edema Assessment] -Right Calf (cm) 46.5 -Right Ankle (cm) 26.5 WC - Nurse 2 - General Ulcer CM Notes Start: 10/20/18 10:51 Freq: Status: Active Protocol: Activity Type Activity Date Activity User E-Sign Co-Sign Detail Recorded Client Recorded Date Recorded By Document 10/20/18 11:05 AN [id number] 10/20/18 11:07 AN 10/20/18 11:05 Wound Center Nurse 2 [Procedure/Treatment] #1 Right Lat LE -Time 11:05 -Correct Patient Yes -Correct Side, Site, Position Yes -Correct Procedure Yes -Procedure Performed Yes -Type of Procedure Debridement -Clinical Debridement Subcutaneous -Post Debridement Size (cm) - Length 0.8 -Post Debridement Size (cm) - Width 0.7 -Post Debridement Size (cm) - Depth 0.2 -Total Square Cm 0.56 -Wound/Ulcer Outcome Not Healed -Ulcer Cleansing Rinsed/ Irrigated with Saline -Foul Odor after Cleansing No -Bioengineered Tissue No -Type of bioengineered Tissue EPIFIX -Product Lot Number [id number] -Bleeding Controlled with Pressure -Offloading No -Treatment Response Procedure Tolerated Well [See Physician Procedure note for Specifics] Pain Scale: 0-10 Numeric [Pain] -Is Patient Pain Free? Yes Musculoskeletal: No Tenderness to Palpation of Joints or Extremities, Muscle Wasting, - - Compartment soft to palpate bilateral lower extremities. Lymphedema clinical appearance bilateral lower extremity Neurological: Sensory exam intact to light touch and pain Psych/Mental Status: Normal Affect, Appropriate Debridement Note Post-Debridement Measurements/Treatment WC - Nurse 2 - General Ulcer CM Notes Start: 10/20/18 10:51 Freq: Status: Active Protocol: Activity Type Activity Date Activity User E-Sign Co-Sign Detail Recorded Client Recorded Date Recorded By Document 10/20/18 11:05 AN [id number] 10/20/18 11:07 AN 10/20/18 11:05 Wound Center Nurse 2 #1 Right Lat LE -Time 11:05 -Correct Patient Yes -Correct Side, Site, Position Yes -Correct Procedure Yes -Procedure Performed Yes -Type of Procedure Debridement -Clinical Debridement Subcutaneous -Post Debridement Size (cm) - Length 0.8 -Post Debridement Size (cm) - Width 0.7 -Post Debridement Size (cm) - Depth 0.2 -Total Square Cm 0.56 -Wound/Ulcer Outcome Not Healed -Ulcer Cleansing Rinsed/ Irrigated with Saline -Foul Odor after Cleansing No -Bioengineered Tissue No -Type of bioengineered Tissue EPIFIX -Product Lot Number [id number] -Bleeding Controlled with Pressure -Offloading No -Treatment Response Procedure Tolerated Well Pain Scale: 0-10 Numeric Is Patient Pain Free? Yes Wound debrided: lateral leg Laterality: Right Type of Debridement: Excisional debridement Anesthesia Used: 5% Lidocaine Gel Depth: in the subcutaneous layer Percentage of wound debrided: 100 Instrument Used: #15 blade Tissue Removed: fibrous, devitalized subcutaneous, biofilm, slough Severity: Fat Layer Exposed Amount of bleeding with debridement: Mild Bleeding Controlled with: Pressure Patient tolerated procedure well Assessment/Plan Active Problems Ulcer of right lower extremity with fat layer exposed (Chronic) Edema of both lower extremities (Chronic) Venous insufficiency (Chronic) Delayed wound healing (Chronic) Malnutrition (Chronic) Allergic dermatitis (Acute) Lymphedema (Acute) Assessment: Right leg ulcer with fat layer exposed. Chronic swelling secondary to venous insufficiency. lymphedema bilateral lower extremities. Delayed healing. Malnutrition suspected. Allergic dermatitis improving on oral prednisone Plan: I reviewed and discussed her case today. Her ulcer site was debrided with a 15 blade scalpel and this was tolerated well as noted in the clinical panel. Pressure was applied to maintain hemostasis. Recommend application of advanced wound healing product, epi-fix. The indication purpose was explained. Prior authorization was achieved. This was applied according to standard protocol and was further secured in place with a wound veil and tape. This is medically necessary for limb salvage. She tolerated the procedure well. She was advised to keep this dressing clean, dry, and intact until follow-up visit next week. I do recommend improved edema control to reduce pressure on the site. She is also advised to avoid laying on the ulcer side. A prescription for offloading donut pillow was provided and she is advised on proper use. To continue Tubigrip's. I also referred her for a venous Doppler with reflux to evaluate for venous insufficiency. Incompetency was noted and I recommended a vascular surgery referral with Dr. Yung to see if any additional intervention exists. She did complete this referral and intervention is recommended in the future. She will schedule follow-up as advised. She brought her Farrow wraps today and education on proper application was reviewed. She is seeking a different undergarment liner that she is not as sensitive to materials. She will continue to follow-up with dermatology in regards to her allergic systemic dermatitis. She will complete a course of oral prednisone. She understands this may contribute to delayed healing however the benefits seem to out weight the risks at this time. To avoid idle standing or sitting. To elevate limbs at rest to help with edema reduction. She was advised to take nutritional supplementation to optimize healing; a prescription for Trevor was provided. She obtained this and she was advised to continue. Labs for CBC, CMP, and prealbumin were also ordered to assess general health status. No gross abnormalities were noted. Her white blood cell count was 4.6. Her prealbumin level was 22.3. These other labs were reviewed with no gross abnormalities. The comprehensive wound healing plan was discussed including her home management. . To return to the wound healing center in 1 week or call sooner if she has any questions or concerns. I answer all her questions.
[2018-10-26 14:40] VITALS: BP 125/73; PULSE 87; RESP 18; TEMP 36.3; BMI 41.8
--- NOTE | 2018-10-26 17:09 | PN.PCM_ITS ---
(1) Ulcer of right lower extremity with fat layer exposed Status: Chronic Code(s): L97.912 - Non-pressure chronic ulcer of unspecified part of right lower leg with fat layer exposed (2) Edema of both lower extremities Status: Chronic Code(s): R60.0 - Localized edema (3) Venous insufficiency Status: Chronic Code(s): I87.2 - Venous insufficiency (chronic) (peripheral) (4) Delayed wound healing Status: Chronic Code(s): T14.8XXD - Other injury of unspecified body region, subsequent encounter Type of Wound Date of Service: 10/26/18 Chief Complaint: Right leg ulcer History of Wound: This 63-year-old pleasant female returns to the wound healing center for chronic right leg ulcer. The onset was over 8 months ago she has had delayed healing. Her pain is rated as mild to moderate and is aggravated with direct touch and swelling. She denies fever, chill, nausea, vomiting, redness or odors. She wore her compression garments but the sensitive to the materials. She has a new rash to the entire aspect of her lower right leg and this rash is also present on her left leg and her right arm and her back. She was referred to dermatology last week who started her on oral prednisone. She has had reduction in skin rash inflammation not only in her leg with the rest of her body. She is also been seen by vascular surgeon for venous insufficiency and has been provided with a referral for a different compression hot top liner in hopes that she is not as sensitive to this material. She denies fever, chill, nausea, vomiting. Progress of Wound: Improving - Physical Exam Vital Signs Temp Pulse Resp BP 97.3 F L 87 18 125/73 H 10/26/18 14:40 10/26/18 14:40 10/26/18 14:40 10/26/18 14:40 General: Alert, Oriented x3, Cooperative HEENT: Atraumatic Oral: Moist Mucosa Lungs: Normal air movement Cardiovascular: Regular rate Extremities: Capillary Refill Less than 3 Seconds, Edema Skin: Ulcer/ Wound - right lateral leg ulcer Wound Measurements and Assessment WC - Nurse 1 - General Ulcer Measurement Start: 10/20/18 10:51 Freq: Status: Active Protocol: Activity Type Activity Date Activity User E-Sign Co-Sign Detail Recorded Client Recorded Date Recorded By Document 10/26/18 14:40 DL [id number] 10/26/18 14:46 DL 10/26/18 14:40 Wound Center Nurse 1 [Ulcer Assessment] #1 Right Lat LE -Current Size (cm) - Length 0.6 -Current Size (cm) - Width 0.6 -Current Size (cm) - Depth 0.1 -Total Square Cm 0.36 -Photo Taken No -Exudate Amt None Present -Exudate Type Serosanguineous -Wound Margin Distinct, Outline Attached -Granulation Amt Large (67-100%) -Granulation Quality Red -Necrosis Amt Small (1-33%) -Necrotic Tissue Type Adherent Slough -Structure Exposed N/A -Texture (Saniya-wound Skin Appearance) Scarring -Moisture (Saniya-wound Skin Appearance No Abnormality ) -Color (Saniya-wound Skin Appearance) Hemosiderin Staining -Temperature (Saniya-wound Skin No Abnormality Appearance) (Pt Warm) -Ulcer Cleansing Rinsed/ Irrigated with Saline -Foul Odor after Cleansing No -Anesthetic Used 4% Lidocaine Solution [Edema Assessment] -Right Calf (cm) 46.6 -Right Ankle (cm) 25.6 WC - Nurse 2 - General Ulcer CM Notes Start: 10/20/18 10:51 Freq: Status: Active Protocol: Activity Type Activity Date Activity User E-Sign Co-Sign Detail Recorded Client Recorded Date Recorded By Document 10/26/18 15:11 [id number] 10/26/18 15:14 10/26/18 15:11 Wound Center Nurse 2 [Procedure/Treatment] #1 Right Lat LE -Time 15:13 -Correct Patient Yes -Correct Side, Site, Position Yes -Correct Procedure Yes -Procedure Performed Yes -Type of Procedure Debridement -Clinical Debridement Subcutaneous -Post Debridement Size (cm) - Length 0.7 -Post Debridement Size (cm) - Width 0.7 -Post Debridement Size (cm) - Depth 0.2 -Total Square Cm 0.49 -Wound/Ulcer Outcome Not Healed -Ulcer Cleansing Rinsed/ Irrigated with Saline -Foul Odor after Cleansing No -Bioengineered Tissue Yes -Type of bioengineered Tissue EPIFIX -Expiration Date 03/16/23 -Product Lot Number [id number] -Percent Used 100 -Saline Lot Number [id number] -Bleeding Controlled with Pressure -Offloading No -Treatment Response Procedure Tolerated Well [See Physician Procedure note for Specifics] Pain Scale: 0-10 Numeric [Pain] -Is Patient Pain Free? Yes Musculoskeletal: No Tenderness to Palpation of Joints or Extremities Lymphatic: No Cervical, Supraclavicular, or Inguinal Adenopathy Neurological: Neuro grossly intact Psych/Mental Status: Normal Affect, Appropriate Debridement Note Post-Debridement Measurements/Treatment WC - Nurse 2 - General Ulcer CM Notes Start: 10/20/18 10:51 Freq: Status: Active Protocol: Activity Type Activity Date Activity User E-Sign Co-Sign Detail Recorded Client Recorded Date Recorded By Document 10/20/18 11:05 AN [id number] 10/20/18 11:07 AN Document 10/26/18 15:11 JF [id number] 10/26/18 15:14 JF 10/20/18 10/26/18 11:05 15:11 Wound Center Nurse 2 #1 Right Lat LE -Time 11:05 15:13 -Correct Patient Yes Yes -Correct Side, Site, Position Yes Yes -Correct Procedure Yes Yes -Procedure Performed Yes Yes -Type of Procedure Debridement Debridement -Clinical Debridement Subcutaneous Subcutaneous -Post Debridement Size (cm) - Length 0.8 0.7 -Post Debridement Size (cm) - Width 0.7 0.7 -Post Debridement Size (cm) - Depth 0.2 0.2 -Total Square Cm 0.56 0.49 -Wound/Ulcer Outcome Not Healed Not Healed -Ulcer Cleansing Rinsed/ Rinsed/ Irrigated with Irrigated with Saline Saline -Foul Odor after Cleansing No No -Bioengineered Tissue No Yes -Type of bioengineered Tissue EPIFIX EPIFIX -Expiration Date 03/16/23 -Product Lot Number [id number] -Percent Used 100 -Saline Lot Number [id number] -Bleeding Controlled with Pressure Pressure -Offloading No No -Treatment Response Procedure Procedure Tolerated Well Tolerated Well Pain Scale: 0-10 Numeric Is Patient Pain Free? Yes Yes Wound debrided: right lateral leg Laterality: Right Type of Debridement: Excisional debridement Anesthesia Used: 4% Lidocaine Solution, 5% Lidocaine Gel Depth: Down to and including healthy tissue, in the subcutaneous layer Percentage of wound debrided: 100 Instrument Used: 3mm curette Tissue Removed: Subcutaneous tissue and slough Severity: Limited To Skin Breakdown Amount of bleeding with debridement: Mild Bleeding Controlled with: Pressure, Compression and gauze Patient tolerated procedure well Assessment/Plan Assessment: Right leg ulcer with fat layer exposed. Chronic swelling secondary to venous insufficiency. lymphedema bilateral lower extremities. Delayed healing. Malnutrition suspected. Allergic dermatitis improving on oral prednisone Plan: This is a courtesy visit for Dr. Queen. She was debrided today and tolerated the procedure well. She had Epifix #4 applied today. 100% of the product was used. Epifix was covered with wound veil and secured with steri strips. She is using her Farrow wraps for compression. She is using a cotton liner under the Farrow wraps to help with her skin irritation. She will continue to follow-up with dermatology in regards to her allergic systemic dermatitis. Encouraged her to avoid idle standing or sitting for long periods of time. To elevate limbs at rest to help with edema reduction. She was advised to take nutritional supplementation of protein to optimize healing. Follow up in one week with Dr. Queen. Code Visit [id number]: [id number] Skin sub graft trnk/arm/leg
[2018-11-03 10:38] VITALS: BP 146/76; PULSE 74; RESP 18; TEMP 36.4; BMI 41.8
--- NOTE | 2018-11-03 13:09 | PCM.WC.PN ---
(1) Ulcer of right lower extremity with fat layer exposed Status: Chronic Current Visit: Yes Code(s): L97.912 - Non-pressure chronic ulcer of unspecified part of right lower leg with fat layer exposed (2) Lymphedema Status: Acute Current Visit: Yes Code(s): I89.0 - Lymphedema, not elsewhere classified (3) Edema of both lower extremities Status: Chronic Current Visit: Yes Code(s): R60.0 - Localized edema (4) Venous insufficiency Status: Chronic Current Visit: Yes Code(s): I87.2 - Venous insufficiency (chronic) (peripheral) (5) Delayed wound healing Status: Chronic Current Visit: Yes Code(s): T14.8XXD - Other injury of unspecified body region, subsequent encounter (6) Malnutrition Status: Chronic Current Visit: Yes Code(s): E46 - Unspecified protein-calorie malnutrition (7) Allergic dermatitis Status: Resolved Current Visit: Yes Code(s): L23.9 - Allergic contact dermatitis, unspecified cause Type of Wound Date of Service: 11/03/18 Chief Complaint: Right leg ulcer History of Wound: This 63-year-old pleasant female returns to the wound healing center for chronic right leg ulcer. The onset was over 8 months ago she has had delayed healing. Her pain is rated as mild to moderate and is aggravated with direct touch and swelling. She denies fever, chill, nausea, vomiting, redness or odors. She wore her compression garments but the sensitive to the materials. This has improved since she had a new underlining. Overall body rash has improved with use of prednisone. She is also recently approved for farrow compression wrap and this is helped reduce her leg swelling. She thinks the ulcer site and there is decreased drainage. She is also been seen by vascular surgeon for venous insufficiency and plans to have a procedure after wound healing is achieved to address her venous insufficiency. She denies fever, chill, nausea, vomiting. Progress of Wound: Improving - Physical Exam Vital Signs Temp Pulse Resp BP 97.6 F L 74 18 146/76 H 11/03/18 10:38 11/03/18 10:38 11/03/18 10:38 11/03/18 10:38 General: Alert, Oriented x3, Cooperative, No apparent distress Extremities: No cyanosis, Capillary Refill Less than 3 Seconds, No Calf Tenderness, Edema, Peripheral Pulses Normal Skin: Ulcer/ Wound - No purulence, erythema, streaking, odor, infection right. The peripheral skin is hairless and atrophic. Inflammatory peripheral skin changes have resolved. Wound Measurements and Assessment WC - Nurse 1 - General Ulcer Measurement Start: 10/20/18 10:51 Freq: Status: Active Protocol: Activity Type Activity Date Activity User E-Sign Co-Sign Detail Recorded Client Recorded Date Recorded By Document 11/03/18 10:38 RB [id number] 11/03/18 10:41 RB 11/03/18 10:38 Wound Center Nurse 1 [Ulcer Assessment] #1 Right Lat LE -Current Size (cm) - Length 0.6 -Current Size (cm) - Width 0.6 -Current Size (cm) - Depth 0.1 -Total Square Cm 0.36 -Tunneling No -Undermining/Tunneling No -Circular Undermining No -Exudate Amt Small -Exudate Type Serosanguineous -Wound Margin Flat & Intact -Granulation Amt Large (67-100%) -Granulation Quality [place] -Slough/Fibrin Yes -Necrosis Amt Small (1-33%) -Necrotic Tissue Type Adherent Slough -Structure Exposed N/A -Texture (Saniya-wound Skin Appearance) Excoriation -Moisture (Saniya-wound Skin Appearance Assessed ) -Color (Saniya-wound Skin Appearance) Assessed -Temperature (Saniya-wound Skin No Abnormality Appearance) (Pt Warm) -Tenderness on Palpation (Saniya-wound No Skin Appearance) -Ulcer Cleansing Wound Cleanser -Foul Odor after Cleansing No -Anesthetic Used 5% Lidocaine Gel [Edema Assessment] -Lower Limb Edema Present Yes -Right Calf (cm) 46.5 -Right Ankle (cm) 24.9 - Nurse 2 - General Ulcer CM Notes Start: 10/20/18 10:51 Freq: Status: Active Protocol: Activity Type Activity Date Activity User E-Sign Co-Sign Detail Recorded Client Recorded Date Recorded By Document 11/03/18 10:58 AN [id number] 11/03/18 11:06 AN 11/03/18 10:58 Wound Center Nurse 2 [Procedure/Treatment] #1 Right Lat LE -Time 11:05 -Correct Patient Yes -Correct Side, Site, Position Yes -Correct Procedure Yes -Procedure Performed Yes -Type of Procedure Debridement -Clinical Debridement Subcutaneous -Post Debridement Size (cm) - Length 0.7 -Post Debridement Size (cm) - Width 0.7 -Post Debridement Size (cm) - Depth 0.1 -Total Square Cm 0.49 -Wound/Ulcer Outcome Not Healed -Ulcer Cleansing Rinsed/ Irrigated with Saline -Foul Odor after Cleansing No -Bioengineered Tissue Yes -Type of bioengineered Tissue EPIFIX -Bleeding Controlled with Pressure -Offloading No -Treatment Response Procedure Tolerated Well [See Physician Procedure note for Specifics] Pain Scale: 0-10 Numeric [Pain] -Is Patient Pain Free? Yes Musculoskeletal: No Tenderness to Palpation of Joints or Extremities, Muscle Wasting Neurological: Sensory exam intact to light touch and pain Psych/Mental Status: Normal Affect, Appropriate Debridement Note Post-Debridement Measurements/Treatment WC - Nurse 2 - General Ulcer CM Notes Start: 10/20/18 10:51 Freq: Status: Active Protocol: Activity Type Activity Date Activity User E-Sign Co-Sign Detail Recorded Client Recorded Date Recorded By Document 10/20/18 11:05 AN [id number] 10/20/18 11:07 AN Document 10/26/18 15:11 [id number] 10/26/18 15:14 Document 11/03/18 10:58 AN [id number] 11/03/18 11:06 AN 10/20/18 10/26/18 11/03/18 11:05 15:11 10:58 Wound Center Nurse 2 #1 Right Lat LE -Time 11:05 15:13 11:05 -Correct Patient Yes Yes Yes -Correct Side, Site, Position Yes Yes Yes -Correct Procedure Yes Yes Yes -Procedure Performed Yes Yes Yes -Type of Procedure Debridement Debridement Debridement -Clinical Debridement Subcutaneous Subcutaneous Subcutaneous -Post Debridement Size (cm) - Length 0.8 0.7 0.7 -Post Debridement Size (cm) - Width 0.7 0.7 0.7 -Post Debridement Size (cm) - Depth 0.2 0.2 0.1 -Total Square Cm 0.56 0.49 0.49 -Wound/Ulcer Outcome Not Healed Not Healed Not Healed -Ulcer Cleansing Rinsed/ Rinsed/ Rinsed/ Irrigated with Irrigated with Irrigated with Saline Saline Saline -Foul Odor after Cleansing No No No -Bioengineered Tissue No Yes Yes -Type of bioengineered Tissue EPIFIX EPIFIX EPIFIX -Expiration Date 03/16/23 -Product Lot Number [id number] -Percent Used 100 -Saline Lot Number [id number] -Bleeding Controlled with Pressure Pressure Pressure -Offloading No No No -Treatment Response Procedure Procedure Procedure Tolerated Well Tolerated Well Tolerated Well Pain Scale: 0-10 Numeric Is Patient Pain Free? Yes Yes Yes Wound debrided: lateral leg Laterality: Right Type of Debridement: Excisional debridement Anesthesia Used: 5% Lidocaine Gel Depth: in the subcutaneous layer Percentage of wound debrided: 100 Instrument Used: #15 blade Tissue Removed: fibrous, devitalized subcutaneous, biofilm, slough Severity: Fat Layer Exposed Amount of bleeding with debridement: Mild Bleeding Controlled with: Pressure Patient tolerated procedure well Assessment/Plan Active Problems Ulcer of right lower extremity with fat layer exposed (Chronic) Edema of both lower extremities (Chronic) Venous insufficiency (Chronic) Delayed wound healing (Chronic) Malnutrition (Chronic) Lymphedema (Acute) Assessment: Right leg ulcer with fat layer exposed-improving. Chronic swelling secondary to venous insufficiency. lymphedema bilateral lower extremities. Delayed healing. Malnutrition suspected. Allergic dermatitis improving on oral prednisone-resolving well Plan: I reviewed and discussed the case today. She was debrided today and tolerated the procedure well. She had Epifix #5 applied today. 100% of the product was used. Epifix was covered with Adaptic touch. She is using her Farrow wraps for compression. She is using a cotton liner under the Farrow wraps to help with her skin irritation. She will continue to follow-up with dermatology in regards to her allergic systemic dermatitis. Encouraged her to avoid idle standing or sitting for long periods of time. To elevate limbs at rest to help with edema reduction. She was advised to take nutritional supplementation of protein to optimize healing. To follow up in one week at the wound healing center.
[2018-11-10 16:21] VITALS: BP 130/73; PULSE 92; RESP 16; TEMP 36.3; BMI 41.8
--- NOTE | 2018-11-10 16:40 | PN.PCM_ITS ---
(1) Ulcer of right lower extremity with fat layer exposed Status: Chronic Current Visit: Yes Code(s): L97.912 - Non-pressure chronic ulcer of unspecified part of right lower leg with fat layer exposed (2) Lymphedema Status: Acute Current Visit: Yes Code(s): I89.0 - Lymphedema, not elsewhere classified (3) Edema of both lower extremities Status: Chronic Current Visit: Yes Code(s): R60.0 - Localized edema (4) Venous insufficiency Status: Chronic Current Visit: Yes Code(s): I87.2 - Venous insufficiency (chronic) (peripheral) (5) Delayed wound healing Status: Chronic Current Visit: Yes Code(s): T14.8XXD - Other injury of unspecified body region, subsequent encounter (6) Malnutrition Status: Chronic Current Visit: Yes Code(s): E46 - Unspecified protein- calorie malnutrition (7) Allergic dermatitis Status: Resolved Current Visit: Yes Code(s): L23.9 - Allergic contact dermatitis, unspecified cause Type of Wound Date of Service: 11/10/18 Chief Complaint: Right leg ulcer History of Wound: This 63-year-old pleasant female returns to the wound healing center for chronic right leg ulcer. The onset was over 8 months ago she has had delayed healing. Her pain is rated as mild to moderate and is aggravated with direct touch and swelling. She denies fever, chill, nausea, vomiting, redness or odors. She wore her compression garments and uses lymphedema pumps and she thinks this is helping control her swelling better. Overall body rash has improved with use of prednisone. She will follow-up next week. She is also recently approved for farrow compression wrap and this is helped reduce her leg swelling. She is also been seen by vascular surgeon for venous insufficiency and plans to have a procedure after wound healing is achieved to address her venous insufficiency. She denies fever, chill, nausea, vomiting. Progress of Wound: Improving - Physical Exam Vital Signs Temp Pulse Resp BP 97.3 F L 92 16 130/73 H 11/10/18 16:21 11/10/18 16:21 11/10/18 16:21 11/10/18 16:21 General: Alert, Oriented x3, Cooperative, No apparent distress Extremities: No cyanosis, Capillary Refill Less than 3 Seconds, No Calf Tenderness - Negative Zhou and Avilez sign right, Diminished Peripheral Pulses, Edema Skin: Ulcer/ Wound - No purulence, erythema hamstring infection. Peripheral epithelization is noted. The adjacent skin is atrophic and there is overall decrease inflammation noted from her recent flareup Wound Measurements and Assessment WC - Nurse 1 - General Ulcer Measurement Start: 10/20/18 10:51 Freq: Status: Active Protocol: Activity Type Activity Date Activity User E-Sign Co-Sign Detail Recorded Client Recorded Date Recorded By Document 11/10/18 16:21 MATT [id number] 11/10/18 16:22 JF 11/10/18 16:21 Wound Center Nurse 1 [Ulcer Assessment] #1 Right Lat LE -Combined with other wound No -Current Size (cm) - Length 0.6 -Current Size (cm) - Width 0.3 -Current Size (cm) - Depth 0.1 -Total Square Cm 0.18 -Photo Taken Yes -Epithelialization Medium 34-66% -Tunneling No -Undermining/Tunneling No -Circular Undermining No -Exudate Amt None Present -Wound Margin Flat & Intact -Granulation Amt Medium (34-66%) -Granulation Quality Red -Slough/Fibrin Yes -Necrosis Amt Small (1-33%) -Necrotic Tissue Type Adherent Slough -Structure Exposed N/A -Texture (Saniya-wound Skin Appearance) Assessed, Localized Edema -Moisture (Saniya-wound Skin Appearance Assessed,Dry/ ) Scaly -Color (Saniya-wound Skin Appearance) Assessed -Temperature (Saniya-wound Skin No Abnormality Appearance) (Pt Warm) -Ulcer Cleansing Rinsed/ Irrigated with Saline -Foul Odor after Cleansing No -Anesthetic Used 4% Lidocaine Solution [Edema Assessment] -Lower Limb Edema Present Yes -Right Calf (cm) 47 -Right Ankle (cm) 25.6 WC - Nurse 2 - General Ulcer CM Notes Start: 10/20/18 10:51 Freq: Status: Active Protocol: Activity Type Activity Date Activity User E-Sign Co-Sign Detail Recorded Client Recorded Date Recorded By Document 11/10/18 16:31 AN [id number] 11/10/18 16:36 AN 11/10/18 16:31 Wound Center Nurse 2 [Procedure/Treatment] #1 Right Lat LE -Time 16:35 -Correct Patient Yes -Correct Side, Site, Position Yes -Correct Procedure Yes -Procedure Performed Yes -Type of Procedure Debridement -Clinical Debridement Subcutaneous -Post Debridement Size (cm) - Length 0.7 -Post Debridement Size (cm) - Width 0.4 -Post Debridement Size (cm) - Depth 0.1 -Total Square Cm 0.28 -Wound/Ulcer Outcome Not Healed -Ulcer Cleansing Rinsed/ Irrigated with Saline -Foul Odor after Cleansing No -Bioengineered Tissue Yes -Type of bioengineered Tissue EPIFIX -Bleeding Controlled with Pressure -Offloading No -Treatment Response Procedure Tolerated Well [See Physician Procedure note for Specifics] Pain Scale: 0-10 Numeric [Pain] -Is Patient Pain Free? Yes Musculoskeletal: No Tenderness to Palpation of Joints or Extremities, Muscle Wasting Neurological: Sensory exam intact to light touch and pain Psych/Mental Status: Normal Affect, Appropriate Debridement Note Post-Debridement Measurements/Treatment WC - Nurse 2 - General Ulcer CM Notes Start: 10/20/18 10:51 Freq: Status: Active Protocol: Activity Type Activity Date Activity User E-Sign Co-Sign Detail Recorded Client Recorded Date Recorded By Document 10/20/18 11:05 AN [id number] 10/20/18 11:07 Document 10/26/18 15:11 [id number] 10/26/18 15:14 Document 11/03/18 10:58 AN [id number] 11/03/18 11:06 AN Document 11/10/18 16:31 AN [id number] 11/10/18 16:36 AN 10/20/18 10/26/18 11/03/18 11:05 15:11 10:58 Wound Center Nurse 2 #1 Right Lat LE -Time 11:05 15:13 11:05 -Correct Patient Yes Yes Yes -Correct Side, Site, Position Yes Yes Yes -Correct Procedure Yes Yes Yes -Procedure Performed Yes Yes Yes -Type of Procedure Debridement Debridement Debridement -Clinical Debridement Subcutaneous Subcutaneous Subcutaneous -Post Debridement Size (cm) - Length 0.8 0.7 0.7 -Post Debridement Size (cm) - Width 0.7 0.7 0.7 -Post Debridement Size (cm) - Depth 0.2 0.2 0.1 -Total Square Cm 0.56 0.49 0.49 -Wound/Ulcer Outcome Not Healed Not Healed Not Healed -Ulcer Cleansing Rinsed/ Rinsed/ Rinsed/ Irrigated with Irrigated with Irrigated with Saline Saline Saline -Foul Odor after Cleansing No No No -Bioengineered Tissue No Yes Yes -Type of bioengineered Tissue EPIFIX EPIFIX EPIFIX -Expiration Date 03/16/23 -Product Lot Number [id number] -Percent Used 100 -Saline Lot Number [id number] -Bleeding Controlled with Pressure Pressure Pressure -Offloading No No No -Treatment Response Procedure Procedure Procedure Tolerated Well Tolerated Well Tolerated Well Pain Scale: 0-10 Numeric Is Patient Pain Free? Yes Yes Yes 11/10/18 16:31 Wound Center Nurse 2 #1 Right Lat LE -Time 16:35 -Correct Patient Yes -Correct Side, Site, Position Yes -Correct Procedure Yes -Procedure Performed Yes -Type of Procedure Debridement -Clinical Debridement Subcutaneous -Post Debridement Size (cm) - Length 0.7 -Post Debridement Size (cm) - Width 0.4 -Post Debridement Size (cm) - Depth 0.1 -Total Square Cm 0.28 -Wound/Ulcer Outcome Not Healed -Ulcer Cleansing Rinsed/ Irrigated with Saline -Foul Odor after Cleansing No -Bioengineered Tissue Yes -Type of bioengineered Tissue EPIFIX -Expiration Date -Product Lot Number -Percent Used -Saline Lot Number -Bleeding Controlled with Pressure -Offloading No -Treatment Response Procedure Tolerated Well Pain Scale: 0-10 Numeric Is Patient Pain Free? Yes Wound debrided: lateral leg Laterality: Right Type of Debridement: Excisional debridement Anesthesia Used: 5% Lidocaine Gel Depth: in the subcutaneous layer Percentage of wound debrided: 100 Instrument Used: #15 blade Tissue Removed: fibrous, devitalized subcutaneous, biofilm, slough Severity: Fat Layer Exposed Amount of bleeding with debridement: Mild Bleeding Controlled with: Pressure Patient tolerated procedure well Assessment/Plan Active Problems Ulcer of right lower extremity with fat layer exposed (Chronic) Edema of both lower extremities (Chronic) Venous insufficiency (Chronic) Delayed wound healing (Chronic) Malnutrition (Chronic) Lymphedema (Acute) Assessment: Right leg ulcer with fat layer exposed-improving. Chronic swelling secondary to venous insufficiency. lymphedema bilateral lower extremities. Delayed healing. Malnutrition suspected. Allergic dermatitis improving on oral prednisone-resolving well Plan: I reviewed and discussed the case today. She was debrided today and tolerated the procedure well. She had Epifixapplied today according center protocol after verbal consent was obtained. 100% of the product was used. Epifix was covered with Adaptic touch. She is using her Farrow wraps for compression. She is using a cotton liner under the Farrow wraps to help with her skin irritation. She will continue to follow-up with dermatology in regards to her allergic systemic dermatitis. Encouraged her to avoid idle standing or sitting for long periods of time. To elevate limbs at rest to help with edema reduction. To continue use compression pumps. She was advised to take nutritional supplementation of protein to optimize healing. She is progressing well. To follow up in one week at the wound healing center.
== END 2018-11-13 23:59 ==
LOC: WC 16:30
PROVIDERS: Family Provider Internal Medicine; PCP Internal Medicine; Referring Provider Podiatrist; Visit Provider Podiatrist
DX: I87.2 Venous insufficiency (chronic) (peripheral) (principal); R60.0 Localized edema; I89.0 Lymphedema, not elsewhere classified; L97.812 Non-pressure chronic ulcer of other part of right lower leg with fat layer exposed; L23.9 Allergic contact dermatitis, unspecified cause
CPT/HCPCS: 15271; Q4186

== ENCOUNTER 2018-11-24 16:15 | Outpatient (RCR) | payer OTHER, SELFPAY ==
[2018-11-14 00:52] VITALS: BP 130/73; PULSE 92; RESP 16; TEMP 36.3
[2018-11-17 16:39] VITALS: BP 155/97; PULSE 95; RESP 18; TEMP 37; BMI 41.8
--- NOTE | 2018-11-17 17:01 | PN.PCM_ITS ---
(1) Ulcer of right lower extremity with fat layer exposed Status: Chronic Current Visit: Yes Code(s): L97.912 - Non-pressure chronic ulcer of unspecified part of right lower leg with fat layer exposed (2) Edema of both lower extremities Status: Chronic Current Visit: Yes Code(s): R60.0 - Localized edema (3) Venous insufficiency Status: Chronic Current Visit: Yes Code(s): I87.2 - Venous insufficiency (chronic) (peripheral) (4) Delayed wound healing Status: Chronic Current Visit: Yes Code(s): T14.8XXD - Other injury of unspecified body region, subsequent encounter (5) Malnutrition Status: Chronic Current Visit: Yes Code(s): E46 - Unspecified protein- calorie malnutrition (6) Allergic dermatitis Status: Resolved Current Visit: Yes Code(s): L23.9 - Allergic contact dermatitis, unspecified cause (7) Lymphedema Status: Acute Current Visit: Yes Code(s): I89.0 - Lymphedema, not elsewhere classified Type of Wound Date of Service: 11/17/18 Chief Complaint: Right leg ulcer History of Wound: This 63-year-old pleasant female returns to the wound healing center for chronic right leg ulcer. She denies fever, chill, nausea, vomiting, redness or odors. She wore her compression garments and uses lymphedema pumps and she thinks this is helping control her swelling better. Overall body rash has improved with use of prednisone. She uses farrow wrap as advised. She is also been seen by vascular surgeon for venous insufficiency and plans to have a procedure after wound healing is achieved to address her venous insufficiency. She denies fever, chill, nausea, vomiting. Progress of Wound: Improving - Physical Exam Vital Signs Temp Pulse Resp BP 98.6 F 95 18 155/97 H 11/17/18 16:39 11/17/18 16:39 11/17/18 16:39 11/17/18 16:39 General: Alert, Oriented x3, Cooperative, No apparent distress Extremities: No cyanosis, Capillary Refill Less than 3 Seconds, No Calf Tenderness - Negative Zhou and Avilez sign right, Diminished Peripheral Pulses, Edema Skin: Ulcer/ Wound - No purulence, erythema, streaking, odor, infection. there is significant peripheral epithelialization noted. There is no peripheral ulcer inflammation noted today. The adjacent skin is atrophic Wound Measurements and Assessment WC - Nurse 1 - General Ulcer Measurement Start: 11/17/18 15:59 Freq: Status: Active Protocol: Activity Type Activity Date Activity User E-Sign Co-Sign Detail Recorded Client Recorded Date Recorded By Document 11/17/18 16:39 RB [id number] 11/17/18 16:42 RB 11/17/18 16:39 Wound Center Nurse 1 [Ulcer Assessment] #1 Right Lat LE -Combined with other wound No -Current Size (cm) - Length 0.5 -Current Size (cm) - Width 0.4 -Current Size (cm) - Depth 0.1 -Total Square Cm 0.20 -Tunneling No -Undermining/Tunneling No -Circular Undermining No -Exudate Amt Small -Exudate Type Serosanguineous -Wound Margin Flat & Intact -Granulation Amt Medium (34-66%) -Granulation Quality [place] -Slough/Fibrin Yes -Necrosis Amt Small (1-33%) -Necrotic Tissue Type Adherent Slough -Structure Exposed N/A -Texture (Saniya-wound Skin Appearance) Assessed -Moisture (Saniya-wound Skin Appearance Assessed ) -Color (Saniya-wound Skin Appearance) Assessed -Temperature (Saniya-wound Skin No Abnormality Appearance) (Pt Warm) -Tenderness on Palpation (Saniya-wound No Skin Appearance) -Ulcer Cleansing Wound Cleanser -Foul Odor after Cleansing No -Anesthetic Used 5% Lidocaine Gel [Edema Assessment] -Lower Limb Edema Present Yes -Right Calf (cm) 47.5 -Right Ankle (cm) 26.2 WC - Nurse 2 - General Ulcer CM Notes Start: 11/17/18 15:59 Freq: Status: Active Protocol: Activity Type Activity Date Activity User E-Sign Co-Sign Detail Recorded Client Recorded Date Recorded By Document 11/17/18 16:56 AN [id number] 11/17/18 16:56 AN 11/17/18 16:56 Wound Center Nurse 2 [Procedure/Treatment] #1 Right Lat LE -Time 16:56 -Correct Patient Yes -Correct Side, Site, Position Yes -Correct Procedure Yes -Procedure Performed Yes -Type of Procedure Debridement -Clinical Debridement Subcutaneous -Post Debridement Size (cm) - Length 0.2 -Post Debridement Size (cm) - Width 0.2 -Post Debridement Size (cm) - Depth 0.1 -Total Square Cm 0.04 -Wound/Ulcer Outcome Not Healed -Ulcer Cleansing Rinsed/ Irrigated with Saline -Foul Odor after Cleansing No -Bioengineered Tissue No -Bleeding Controlled with Pressure -Offloading Yes -Treatment Response Procedure Tolerated Well [See Physician Procedure note for Specifics] Pain Scale: 0-10 Numeric [Pain] -Is Patient Pain Free? Yes Musculoskeletal: No Tenderness to Palpation of Joints or Extremities, Muscle Wasting Neurological: Sensory exam intact to light touch and pain Psych/Mental Status: Normal Affect, Appropriate Debridement Note Post-Debridement Measurements/Treatment WC - Nurse 2 - General Ulcer CM Notes Start: 11/17/18 15:59 Freq: Status: Active Protocol: Activity Type Activity Date Activity User E-Sign Co-Sign Detail Recorded Client Recorded Date Recorded By Document 11/17/18 16:56 AN [id number] 11/17/18 16:56 AN 11/17/18 16:56 Wound Center Nurse 2 #1 Right Lat LE -Time 16:56 -Correct Patient Yes -Correct Side, Site, Position Yes -Correct Procedure Yes -Procedure Performed Yes -Type of Procedure Debridement -Clinical Debridement Subcutaneous -Post Debridement Size (cm) - Length 0.2 -Post Debridement Size (cm) - Width 0.2 -Post Debridement Size (cm) - Depth 0.1 -Total Square Cm 0.04 -Wound/Ulcer Outcome Not Healed -Ulcer Cleansing Rinsed/ Irrigated with Saline -Foul Odor after Cleansing No -Bioengineered Tissue No -Bleeding Controlled with Pressure -Offloading Yes -Treatment Response Procedure Tolerated Well Pain Scale: 0-10 Numeric Is Patient Pain Free? Yes Wound debrided: lateral leg Laterality: Right Type of Debridement: Excisional debridement Anesthesia Used: 5% Lidocaine Gel Depth: in the subcutaneous layer Percentage of wound debrided: 100 Instrument Used: #15 blade Tissue Removed: fibrous, devitalized subcutaneous, biofilm, slough Severity: Fat Layer Exposed Amount of bleeding with debridement: Mild Bleeding Controlled with: Pressure Patient tolerated procedure well Assessment/Plan Active Problems Ulcer of right lower extremity with fat layer exposed (Chronic) Edema of both lower extremities (Chronic) Venous insufficiency (Chronic) Delayed wound healing (Chronic) Malnutrition (Chronic) Lymphedema (Acute) Assessment: Right leg ulcer with fat layer exposed-improving. Chronic swelling secondary to venous insufficiency. lymphedema bilateral lower extremities. Delayed healing. Malnutrition suspected. Allergic dermatitis improving on oral prednisone-resolving well Plan: I reviewed and discussed the case today. She was debrided today and tolerated the procedure well. She is done well with prior advanced wound healing product application, epi-fix. I recommend changing the dressing this upcoming week at home with hydrogel and Adaptic. She is using her Farrow wraps for compression. She is using a cotton liner under the Farrow wraps to help with her skin irritation. She will continue to follow-up with dermatology in regards to her allergic systemic dermatitis. Encouraged her to avoid idle standing or sitting for long periods of time. To elevate limbs at rest to help with edema reduction. To continue use compression pumps. She was advised to take nutritional supplementation of protein to optimize healing. She is progressing well. To follow up in one week at the wound healing center.
[2018-11-24 16:04] VITALS: BP 116/71; PULSE 86; RESP 18; TEMP 36.5; BMI 41.8
--- NOTE | 2018-11-24 17:07 | PCM.WC.PN ---
(1) Ulcer of right lower extremity with fat layer exposed Status: Resolved Current Visit: Yes Code(s): L97.912 - Non-pressure chronic ulcer of unspecified part of right lower leg with fat layer exposed (2) Edema of both lower extremities Status: Chronic Current Visit: Yes Code(s): R60.0 - Localized edema (3) Venous insufficiency Status: Chronic Current Visit: Yes Code(s): I87.2 - Venous insufficiency (chronic) (peripheral) (4) Delayed wound healing Status: Chronic Current Visit: Yes Code(s): T14.8XXD - Other injury of unspecified body region, subsequent encounter (5) Malnutrition Status: Chronic Current Visit: Yes Code(s): E46 - Unspecified protein-calorie malnutrition (6) Allergic dermatitis Status: Resolved Current Visit: Yes Code(s): L23.9 - Allergic contact dermatitis, unspecified cause (7) Lymphedema Status: Acute Current Visit: Yes Code(s): I89.0 - Lymphedema, not elsewhere classified Type of Wound Date of Service: 11/24/18 Chief Complaint: Right leg ulcer History of Wound: This 63-year-old pleasant female returns to the wound healing center for chronic right leg ulcer. She denies fever, chill, nausea, vomiting, redness or odors. She wore her compression garments and uses lymphedema pumps and she thinks this is helping control her swelling better. She uses farrow wrap as advised. She is also been seen by vascular surgeon for venous insufficiency and plans to have a procedure after wound healing is achieved to address her venous insufficiency. She denies fever, chill, nausea, vomiting. He denies drainage and thinks her ulcer site may be healed today. Progress of Wound: Healed - Physical Exam Vital Signs Temp Pulse Resp BP 97.7 F L 86 18 116/71 11/24/18 16:04 11/24/18 16:04 11/24/18 16:04 11/24/18 16:04 General: Alert, Oriented x3, Cooperative, No apparent distress Extremities: No cyanosis, Capillary Refill Less than 3 Seconds, No Calf Tenderness - Negative Zhou and Avilez sign compartments remain soft, Diminished Peripheral Pulses, Edema Skin: Ulcer/ Wound - Full epithelialization is noted in the ulcer site is healed. The adjacent skin has scant hair and is atrophic. No purulence, erythema, streaking, odor, or infection Wound Measurements and Assessment WC - Nurse 1 - General Ulcer Measurement Start: 11/17/18 15:59 Freq: Status: Active Protocol: Activity Type Activity Date Activity User E-Sign Co-Sign Detail Recorded Client Recorded Date Recorded By Document 11/24/18 16:04 MARCOS [id number] 11/24/18 16:08 MARCOS 11/24/18 16:04 Wound Center Nurse 1 [Ulcer Assessment] #1 Right Lat LE -Current Size (cm) - Length 0 -Current Size (cm) - Width 0 -Current Size (cm) - Depth 0 -Total Square Cm 0 -Photo Taken Yes -Exudate Amt None Present -Wound Margin Flat & Intact -Granulation Amt Large (67-100%) -Granulation Quality [place] -Necrosis Amt None Present (0 %) -Structure Exposed N/A -Texture (Saniya-wound Skin Appearance) Scarring -Moisture (Saniya-wound Skin Appearance No Abnormality ) -Color (Saniya-wound Skin Appearance) No Abnormality -Temperature (Saniya-wound Skin No Abnormality Appearance) (Pt Warm) -Tenderness on Palpation (Saniya-wound No Skin Appearance) -Ulcer Cleansing Rinsed/ Irrigated with Saline -Foul Odor after Cleansing No [Edema Assessment] -Right Calf (cm) 44.5 -Right Ankle (cm) 24.5 WC - Nurse 2 - General Ulcer CM Notes Start: 11/17/18 15:59 Freq: Status: Active Protocol: Activity Type Activity Date Activity User E-Sign Co-Sign Detail Recorded Client Recorded Date Recorded By Document 11/24/18 16:42 MATT [id number] 11/24/18 16:43 MATT 11/24/18 16:42 Wound Center Nurse 2 [Procedure/Treatment] #1 Right Lat LE -Correct Patient No -Correct Side, Site, Position No -Correct Procedure No -Procedure Performed No -Post Debridement Size (cm) - Length 0 -Post Debridement Size (cm) - Width 0 -Post Debridement Size (cm) - Depth 0 -Total Square Cm 0 -Wound/Ulcer Outcome Healed- Epithelialized [See Physician Procedure note for Specifics] Pain Scale: 0-10 Numeric [Pain] -Is Patient Pain Free? Yes Musculoskeletal: No Tenderness to Palpation of Joints or Extremities, Muscle Wasting Neurological: Sensory exam intact to light touch and pain Psych/Mental Status: Normal Affect, Appropriate Debridement Note Post-Debridement Measurements/Treatment WC - Nurse 2 - General Ulcer CM Notes Start: 11/17/18 15:59 Freq: Status: Active Protocol: Activity Type Activity Date Activity User E-Sign Co-Sign Detail Recorded Client Recorded Date Recorded By Document 11/17/18 16:56 AN [id number] 11/17/18 16:56 AN Document 11/24/18 16:42 JF [id number] 11/24/18 16:43 JF 11/17/18 11/24/18 16:56 16:42 Wound Center Nurse 2 #1 Right Lat LE -Time 16:56 -Correct Patient Yes No -Correct Side, Site, Position Yes No -Correct Procedure Yes No -Procedure Performed Yes No -Type of Procedure Debridement -Clinical Debridement Subcutaneous -Post Debridement Size (cm) - Length 0.2 0 -Post Debridement Size (cm) - Width 0.2 0 -Post Debridement Size (cm) - Depth 0.1 0 -Total Square Cm 0.04 0 -Wound/Ulcer Outcome Not Healed Healed- Epithelialized -Ulcer Cleansing Rinsed/ Irrigated with Saline -Foul Odor after Cleansing No -Bioengineered Tissue No -Bleeding Controlled with Pressure -Offloading Yes -Treatment Response Procedure Tolerated Well Pain Scale: 0-10 Numeric Is Patient Pain Free? Yes Yes No debridement was completed today - healed Assessment/Plan Active Problems Edema of both lower extremities (Chronic) Venous insufficiency (Chronic) Delayed wound healing (Chronic) Malnutrition (Chronic) Lymphedema (Acute) Assessment: Right leg ulcer healed. Chronic swelling secondary to venous insufficiency. lymphedema bilateral lower extremities. Delayed healing. Allergic dermatitis improving on oral prednisone-resolved Plan: I reviewed and discussed the case today. Her ulcer is healed and she can discontinue dressing care. To protect this site and practice gentle hygiene because the site is fragile and the remodeling process will take several months. To monitor for return of the wound. She is using her Farrow wraps for compression and was advised to continue. She is using a cotton liner under the Farrow wraps to help with her skin irritation. She will continue to follow-up with dermatology in regards to her allergic systemic dermatitis. Encouraged her to avoid idle standing or sitting for long periods of time. To elevate limbs at rest to help with edema reduction. To continue use compression pumps. It is also okay to discontinue nutritional supplementation at this time. She will now proceed with following up with vascular surgery for venous intervention now that the ulcer site is healed. She no longer needs to follow-up on a weekly basis. To follow-up after the venous intervention is performed or sooner if she has any lower extremity needs. Answer all questions.
== END 2018-12-13 23:59 ==
LOC: WC 16:15
PROVIDERS: Family Provider Internal Medicine; PCP Internal Medicine; Referring Provider Podiatrist; Visit Provider Podiatrist
DX: I87.2 Venous insufficiency (chronic) (peripheral) (principal); L97.812 Non-pressure chronic ulcer of other part of right lower leg with fat layer exposed; R60.0 Localized edema; I89.0 Lymphedema, not elsewhere classified
CPT/HCPCS: 11042; 99213; G0463

== ENCOUNTER 2018-12-22 11:14 | Outpatient (RCR) | payer OTHER, SELFPAY ==
[2018-12-14 00:49] VITALS: BP 116/71; PULSE 86; RESP 18; TEMP 36.5
[2018-12-22 16:08] VITALS: BP 140/72; PULSE 86; RESP 18; TEMP 36.4; BMI 41.8
--- NOTE | 2018-12-22 16:46 | PCM.WC.PN ---
(1) Ulcer of right lower extremity with fat layer exposed Status: Resolved Current Visit: Yes Code(s): L97.912 - Non-pressure chronic ulcer of unspecified part of right lower leg with fat layer exposed (2) Edema of both lower extremities Status: Chronic Current Visit: Yes Code(s): R60.0 - Localized edema (3) Venous insufficiency Status: Chronic Current Visit: Yes Code(s): I87.2 - Venous insufficiency (chronic) (peripheral) (4) Lymphedema Status: Chronic Current Visit: Yes Code(s): I89.0 - Lymphedema, not elsewhere classified Type of Wound Date of Service: 12/22/18 Chief Complaint: Right leg has healed History of Wound: This 63-year-old pleasant female returns to the wound healing center for chronic right leg ulcer. She denies fever, chill, nausea, vomiting, redness or odors. She wore her compression garments and uses lymphedema pumps. She uses farrow wrap as advised. She is also been seen by vascular surgeon for venous insufficiency and plans to have a procedure after wound healing is achieved to address her venous insufficiency. She is scheduled follow-up next week. She denies any wound drainage or redness. She denies fever, chill, nausea, vomiting. Progress of Wound: Remains healed - Physical Exam Vital Signs Temp Pulse Resp BP 97.5 F L 86 18 140/72 H 12/22/18 16:08 12/22/18 16:08 12/22/18 16:08 12/22/18 16:08 General: Alert, Oriented x3, Cooperative, No apparent distress HEENT: Atraumatic Extremities: No cyanosis, Capillary Refill Less than 3 Seconds, No Calf Tenderness - Negative Zhou and Avilez signs right, Diminished Peripheral Pulses, Edema - Right lower extremity and left lower extremity, Tenderness - No pain with heel ulcer site Skin: Ulcer/ Wound - Full epithelialization is noted and there is no skin discontinuity. No purulence, erythema, streaking, infection. Her skin integrity appears to be intact today without local inflammatory changes Wound Measurements and Assessment WC - Nurse 1 - General Ulcer Measurement Start: 12/22/18 16:07 Freq: Status: Active Protocol: Activity Type Activity Date Activity User E-Sign Co-Sign Detail Recorded Client Recorded Date Recorded By Document 12/22/18 16:08 MATT [id number] 12/22/18 16:08 JF 12/22/18 16:08 Wound Center Nurse 1 [Edema Assessment] -Lower Limb Edema Present Yes -Right Calf (cm) 45.7 -Right Ankle (cm) 25.6 Musculoskeletal: No Tenderness to Palpation of Joints or Extremities, Muscle Wasting Neurological: Sensory exam intact to light touch and pain Psych/Mental Status: Normal Affect, Appropriate Debridement Note No debridement was completed today - Remains healed Assessment/Plan Active Problems Edema of both lower extremities (Chronic) Venous insufficiency (Chronic) Lymphedema (Chronic) Assessment: Right leg ulcer pain healed. Chronic swelling secondary to venous insufficiency. lymphedema bilateral lower extremities. Allergic dermatitis is currently controlled Plan: I reviewed and discussed the case today. Her ulcer has remained healed and she does not require dressing or wound care. To protect this site and practice gentle hygiene because the site is fragile and the remodeling process will take several months. To monitor for return of the wound. She is using her Farrow wraps for compression and was advised to continue. She is using a cotton liner under the Farrow wraps to help with her skin irritation. She will continue to follow-up with dermatology in regards to her allergic systemic dermatitis which is not flared up at this time. She was encouraged her to avoid idle standing or sitting for long periods of time. To elevate limbs at rest to help with edema reduction. To continue use compression pumps. It is also okay to discontinue nutritional supplementation at this time. She will now proceed with following up with vascular surgery for venous intervention now that the ulcer site is healed. She is scheduled to follow-up next week. She is discharged from the wound healing center this time. She is advised to follow-up at the foot and ankle center as needed. I answered her questions.
== END 2019-01-13 23:59 ==
LOC: WC 11:14
PROVIDERS: Family Provider Internal Medicine; PCP Internal Medicine; Referring Provider Podiatrist; Visit Provider Podiatrist
DX: Z09 Encounter for follow-up examination after completed treatment for conditions other than malignant neoplasm (principal); I87.2 Venous insufficiency (chronic) (peripheral); I89.0 Lymphedema, not elsewhere classified
CPT/HCPCS: 99212; G0463